=== PATIENT | male | born 1955 | race Caucasian/White ===

== ENCOUNTER 2018-05-16 09:06 | Inpatient (IN) | payer MEDICAID, OTHER ==
[2018-05-16] VITALS (12 sets, daily range): BP systolic 163–215; BP diastolic 59–100
[~2018-05-16] VITALS: Ht 152.4 cm; Wt 70.8 kg
[~2018-05-16 09:06] MED LIST: ALLO100T PO; AMLO10TA80 PO; FERR325T6 PO; GABA-531 PO; INSU100I22 SQ; SIMV20TA6 PO
[2018-05-16] MEDS ORDERED: ALBUTEROL (0.083%) 2.5MG/3ML NEB HHN STA (09:36)
[2018-05-16] MEDS ORDERED: ENALAPRIL 2.5MG/2ML VIAL 2ML IV ONE (09:45)
[2018-05-16 10:17] LABS: BASOPHILS % 1.3 % (0.0-2.0); EOSINOPHILS % 8.6 % (0.0-5.0); HEMATOCRIT. 27.2 % (42.0-52.0); HEMOGLOBIN. 9.1 g/dL (14.0-18.0); LYMPHOCYTES % 20.4 % (20.0-50.0); MEAN CORPUSCULAR HEMOGLOBIN 27.5 pg (28.0-32.0); MEAN CORPUSCULAR VOLUME 82.7 fL (80.0-94.0); MEAN PLATELET VOLUME 8.1 fl (7.4-10.4); MONOCYTES % 5.6 % (2.0-8.0); NEUTROPHILS % 64.1 % (40.0-76.0); PLATELET 278 x1000/uL (130-400); RED BLOOD CELL COUNT 3.29 mill/uL (4.7-6.1); RED CELL DISTRIBUTION WIDTH 17.7 % (11.6-14.6)
[2018-05-16 10:26] LABS: CHLORIDE 110 mEq/L (98-107); PARTIAL THROMBOPLASTIN TIME 30.7 sec (23.4-31.0); PROTHROMBIN TIME 10.1 sec (9.1-11.1)
[2018-05-16 10:31] LABS: ETHANOL BLOOD < 10 mg/dL
[2018-05-16] MEDS ORDERED: LEVOFLOXACIN 500MG PREMIX 100 ML IV ONE (10:45)
[2018-05-16] MEDS ORDERED: AZITHROMYCIN 500 MG in DEXT 5% WATER 250 ML IV STA (10:47)
[2018-05-16] MEDS ORDERED: CEFTRIAXONE 1 G PREMIX 50 ML IV ONE (11:00)
[2018-05-16 11:03] LABS: BG BASE EXCESS -5.2 mmol/L (-2.0-2.0); BG CARBOXYHEMOGLOBIN 0.4 % (0.5-1.5); BG DEOXYHEMOGLOBIN 4.7 % (0.0-5.0); BG FRACTION INSPIRED OXYGEN 21; BG HCO3 ACT 19.5 mmol/L (22.0-26.0); BG METHEMOGLOBIN 0.3 % (0.0-1.5); BG OXYGEN SATURATION 95.3 % (92.0-98.5); BG OXYHEMOGLOBIN 94.6 % (94.0-97.0); BG PCO2 34.2 mmHg (35.0-45.0); BG PH 7.373 (7.350-7.450); BG PO2 88.7 mmHg (75.0-100.0); BG SAMPLE SITE RIGHT RADIAL; BG TOTAL HEMOGLOBIN 8.9 g/dL (12.0-18.0); BG VENT MODE ROOM AIR
[2018-05-16] MEDS ORDERED: FUROSEMIDE 100MG/10ML VIAL IV STA (11:05)
[2018-05-16] MEDS ORDERED: INSULIN REGULAR (HUMULIN R) 300UNITS/3ML IV ONE (11:15)
[2018-05-16] MEDS ORDERED: SODIUM POLYSTYRENE SULFONATE 15 G/60 ML BOT PO ONE (11:15)
[2018-05-16] MEDS ORDERED: SODIUM BICARBONATE 8.4% 1 MEQ/ML 50ML SYR IV ONE (11:15)
[2018-05-16] MEDS ORDERED: CALCIUM CHLORIDE 1GM/10ML SYR IV ONE (11:15)
[2018-05-16] MEDS ORDERED: DEXTROSE 50% WATER 50ML SYRINGE IV ONE (11:15)
[2018-05-16] MEDS ORDERED: ASPIRIN 81MG TABLET PO ONE (11:45)
[2018-05-16] MEDS ORDERED: LIDOCAINE HCL 1% 20ML VIAL (Pyxis) INJ ONE (12:43)
[2018-05-16 13:11] LABS: HEPATITIS B SURFACE AB < 3.1 mIU/mL
[2018-05-16] MEDS ORDERED: LISI-604 PO (17:17)
[2018-05-16] MEDS ORDERED: CLON0.1T PO (17:17)
[2018-05-16] MEDS ORDERED: AMLO10TA4 PO (17:17)
[2018-05-16] MEDS ORDERED: COR6 PO (17:17)
[2018-05-16] MEDS ORDERED: ASPI-1158 MT (17:17)
[2018-05-16] MEDS: CLONIDINE 0.2MG TABLET PO PRN ×2 (17:28→20:52)
[2018-05-16] MEDS ORDERED: ONDANSETRON HCL 4MG/2ML INJ IV PRN (21:00)
[2018-05-16] MEDS ORDERED: ACETAMINOPHEN 325MG TABLET PO PRN (21:00)
[2018-05-16] MEDS ORDERED: IPRATROPIUM/ALBUTEROL 0.5-3(2.5)MG/3ML NEB INH PRN (21:00)
[2018-05-16] MEDS ORDERED: HYDROCODONE/ACETAMINOPHEN 10/325MG TABLET PO PRN (21:00)
[2018-05-16] MEDS ORDERED: METHYLPREDNISOLONE SOD SUCC 125 MG/2 ML VIAL IV NR (21:00)
[2018-05-16] MEDS ORDERED: GUAIFENESIN 200MG/10ML SUGAR FREE UDC PO PRN (21:00)
[2018-05-16] MEDS: GABAPENTIN 100MG CAPSULE PO SCH (21:23)
[2018-05-16] MEDS: FAMOTIDINE 20MG TABLET PO SCH (21:23)
[2018-05-16] MEDS: ATORVASTATIN CALCIUM 20MG TABLET PO SCH (21:23)
[2018-05-16] MEDS: COLCHICINE 0.6MG TABLET PO SCH (21:23)
[2018-05-16] MEDS: SODIUM CHLORIDE 0.9% INJ 3ML FLUSH IVF SCH (21:35)
[2018-05-16] MEDS: INSULIN GLARGINE UD 100 UNITS/ML SYR SUBCUT SCH (22:11)
[2018-05-16] MEDS ORDERED: DEXTROSE 50% WATER 50ML SYRINGE IV PRN (22:45)
[2018-05-17] VITALS (16 sets, daily range): BP systolic 129–199; BP diastolic 48–114
[2018-05-17] MEDS: CLONIDINE 0.2MG TABLET PO PRN ×2 (03:22→21:34)
[2018-05-17] MEDS: GABAPENTIN 100MG CAPSULE PO SCH ×3 (05:36→21:33)
[2018-05-17] MEDS: SODIUM CHLORIDE 0.9% INJ 3ML FLUSH IVF SCH ×3 (05:37→22:00)
[2018-05-17] MEDS: BLOOD SUGAR DIAGNOSTIC STRIP TEST SCH ×4 (07:58→21:00)
[2018-05-17] MEDS: AMLODIPINE 10MG TABLET PO SCH (08:08)
[2018-05-17] MEDS: LISINOPRIL 20MG TABLET PO SCH (08:08)
[2018-05-17] MEDS: INSULIN LISPRO 100 UNITS/ML SUBCUT SCH ×4 (08:09→21:33)
[2018-05-17] MEDS: COLCHICINE 0.6MG TABLET PO SCH (09:17)
[2018-05-17 17:15] LABS: HEMATOCRIT. 28.8 % (42.0-52.0); HEMOGLOBIN. 9.4 g/dL (14.0-18.0); MEAN CORPUSCULAR HEMOGLOBIN 26.9 pg (28.0-32.0); MEAN CORPUSCULAR VOLUME 82.4 fL (80.0-94.0); MEAN PLATELET VOLUME 8.6 fl (7.4-10.4); PLATELET 281 x1000/uL (130-400); RED CELL DISTRIBUTION WIDTH 17.6 % (11.6-14.6)
[2018-05-17 21:03] LABS: PLATELET ESTIMATE NORMAL
[2018-05-17] MEDS: INSULIN GLARGINE UD 100 UNITS/ML SYR SUBCUT SCH (21:33)
[2018-05-17] MEDS: FAMOTIDINE 20MG TABLET PO SCH (21:33)
[2018-05-17] MEDS: ATORVASTATIN CALCIUM 20MG TABLET PO SCH (21:34)
[2018-05-17] MEDS: TEMAZEPAM 15MG CAPSULE PO PRN (21:37)
[2018-05-18] VITALS (11 sets, daily range): BP systolic 136–155; BP diastolic 66–78
[2018-05-18] MEDS: GABAPENTIN 100MG CAPSULE PO SCH ×3 (05:34→20:59)
[2018-05-18] MEDS: SODIUM CHLORIDE 0.9% INJ 3ML FLUSH IVF SCH ×3 (05:34→21:00)
[2018-05-18 06:28] LABS: BASOPHILS % 0.8 % (0.0-2.0); EOSINOPHILS % 0.8 % (0.0-5.0); HEMATOCRIT. 28.3 % (42.0-52.0); HEMOGLOBIN. 9.5 g/dL (14.0-18.0); LYMPHOCYTES % 12.7 % (20.0-50.0); MEAN CORPUSCULAR HEMOGLOBIN 27.4 pg (28.0-32.0); MEAN PLATELET VOLUME 8.6 fl (7.4-10.4); NEUTROPHILS % 80.7 % (40.0-76.0); PLATELET 264 x1000/uL (130-400); RED BLOOD CELL COUNT 3.45 mill/uL (4.7-6.1); RED CELL DISTRIBUTION WIDTH 17.1 % (11.6-14.6)
[2018-05-18] MEDS: BLOOD SUGAR DIAGNOSTIC STRIP TEST SCH ×4 (07:30→20:47)
[2018-05-18] MEDS: COLCHICINE 0.6MG TABLET PO SCH (10:25)
[2018-05-18] MEDS: AMLODIPINE 10MG TABLET PO SCH (10:25)
[2018-05-18] MEDS: LISINOPRIL 20MG TABLET PO SCH (10:26)
[2018-05-18] MEDS: DIPHENHYDRAMINE 50MG/ML VIAL IV PRN ×2 (10:27→18:07)
[2018-05-18] MEDS: INSULIN LISPRO 100 UNITS/ML SUBCUT SCH ×4 (10:34→20:59)
[2018-05-18] MEDS: TEMAZEPAM 15MG CAPSULE PO PRN (20:59)
[2018-05-18] MEDS: FAMOTIDINE 20MG TABLET PO SCH (20:59)
[2018-05-18] MEDS: ATORVASTATIN CALCIUM 20MG TABLET PO SCH (20:59)
[2018-05-18] MEDS: TRAZODONE HCL 50MG TABLET PO SCH (20:59)
[2018-05-18] MEDS: INSULIN GLARGINE UD 100 UNITS/ML SYR SUBCUT SCH (22:15)
[2018-05-19] VITALS (12 sets, daily range): BP systolic 129–167; BP diastolic 72–83
[2018-05-19] MEDS: SODIUM CHLORIDE 0.9% INJ 3ML FLUSH IVF SCH ×3 (05:26→21:39)
[2018-05-19] MEDS: GABAPENTIN 100MG CAPSULE PO SCH ×3 (05:26→21:31)
[2018-05-19 05:59] LABS: BASOPHILS % 1.2 % (0.0-2.0); EOSINOPHILS % 5.1 % (0.0-5.0); HEMATOCRIT. 27.9 % (42.0-52.0); HEMOGLOBIN. 9.1 g/dL (14.0-18.0); LYMPHOCYTES % 23.3 % (20.0-50.0); MEAN CORPUSCULAR HEMOGLOBIN 27.2 pg (28.0-32.0); MEAN CORPUSCULAR VOLUME 83.1 fL (80.0-94.0); MEAN PLATELET VOLUME 8.8 fl (7.4-10.4); MONOCYTES % 5.7 % (2.0-8.0); NEUTROPHILS % 64.7 % (40.0-76.0); PLATELET 255 x1000/uL (130-400); RED BLOOD CELL COUNT 3.35 mill/uL (4.7-6.1); RED CELL DISTRIBUTION WIDTH 17.8 % (11.6-14.6)
[2018-05-19] MEDS: BLOOD SUGAR DIAGNOSTIC STRIP TEST SCH ×4 (07:30→21:38)
[2018-05-19] MEDS: INSULIN LISPRO 100 UNITS/ML SUBCUT SCH ×4 (08:00→21:35)
[2018-05-19] MEDS ORDERED: HEPARIN SODIUM 1,000 UNIT/1ML VIAL IV NR (08:45)
[2018-05-19] MEDS: COLCHICINE 0.6MG TABLET PO SCH (12:38)
[2018-05-19] MEDS: LISINOPRIL 20MG TABLET PO SCH ×2 (12:39→21:31)
[2018-05-19] MEDS: AMLODIPINE 10MG TABLET PO SCH (12:39)
[2018-05-19] MEDS: DIPHENHYDRAMINE 50MG/ML VIAL IV PRN (12:39)
[2018-05-19] MEDS: GLIMEPIRIDE 2MG TABLET PO SCH (19:02)
[2018-05-19] MEDS: TRAZODONE HCL 50MG TABLET PO SCH (21:30)
[2018-05-19] MEDS: FAMOTIDINE 20MG TABLET PO SCH (21:31)
[2018-05-19] MEDS: ATORVASTATIN CALCIUM 20MG TABLET PO SCH (21:31)
[2018-05-19] MEDS: INSULIN GLARGINE UD 100 UNITS/ML SYR SUBCUT SCH (21:36)
[2018-05-20] VITALS (22 sets, daily range): BP systolic 113–181; BP diastolic 64–94
[2018-05-20] MEDS: GABAPENTIN 100MG CAPSULE PO SCH ×3 (06:10→21:30)
[2018-05-20] MEDS: SODIUM CHLORIDE 0.9% INJ 3ML FLUSH IVF SCH ×3 (06:11→21:29)
[2018-05-20 06:19] LABS: BASOPHILS % 1.3 % (0.0-2.0); EOSINOPHILS % 8.8 % (0.0-5.0); HEMATOCRIT. 27.9 % (42.0-52.0); HEMOGLOBIN. 9.4 g/dL (14.0-18.0); LYMPHOCYTES % 28.5 % (20.0-50.0); MEAN CORPUSCULAR HEMOGLOBIN 27.4 pg (28.0-32.0); MEAN CORPUSCULAR VOLUME 81.5 fL (80.0-94.0); MEAN PLATELET VOLUME 8.6 fl (7.4-10.4); MONOCYTES % 8.4 % (2.0-8.0); PLATELET 268 x1000/uL (130-400); RED BLOOD CELL COUNT 3.42 mill/uL (4.7-6.1); RED CELL DISTRIBUTION WIDTH 17.1 % (11.6-14.6)
[2018-05-20 06:26] LABS: PARTIAL THROMBOPLASTIN TIME 27.5 sec (23.4-31.0); PROTHROMBIN TIME 10.4 sec (9.1-11.1)
[2018-05-20] MEDS: GLIMEPIRIDE 2MG TABLET PO SCH (07:30)
[2018-05-20] MEDS: INSULIN LISPRO 100 UNITS/ML SUBCUT SCH ×4 (08:00→21:31)
[2018-05-20] MEDS: BLOOD SUGAR DIAGNOSTIC STRIP TEST SCH ×4 (08:10→21:31)
[2018-05-20] MEDS: LISINOPRIL 20MG TABLET PO SCH ×2 (08:11→21:29)
[2018-05-20] MEDS: ALLOPURINOL 100 MG TABLET PO SCH (08:11)
[2018-05-20] MEDS: AMLODIPINE 10MG TABLET PO SCH (08:11)
[2018-05-20] MEDS ORDERED: CEFAZOLIN 1000MG PREMIX 50 ML IV SCH (08:15)
[2018-05-20] MEDS ORDERED: LIDOCAINE HCL 1% 20ML VIAL (Pyxis) INJ ONE (08:26)
[2018-05-20] MEDS ORDERED: CEFAZOLIN 1000MG PREMIX 50 ML IV ONE (08:26)
[2018-05-20] MEDS ORDERED: SODIUM BICARBONATE 4% (2.4MEQ) 5ML VIAL IV ONE (08:26)
[2018-05-20] MEDS ORDERED: FENTANYL CITRATE/PF 50MCG/ML 2ML VIAL ONE (08:27)
[2018-05-20] MEDS ORDERED: FENTANYL CITRATE/PF 50MCG/ML 2ML VIAL IV ONE (09:30)
[2018-05-20 13:03] LABS: HEPATITIS B SURFACE ANTIGEN NEGATIVE
[2018-05-20 13:33] LABS: HEPATITIS A AB IGM NEGATIVE (NEGATIVE)
[2018-05-20] MEDS: NIFEDIPINE XL 60MG TAB PO SCH (13:51)
[2018-05-20] MEDS: CLONIDINE 0.2MG TABLET PO PRN (18:34)
[2018-05-20] MEDS: FAMOTIDINE 20MG TABLET PO SCH (21:29)
[2018-05-20] MEDS: TRAZODONE HCL 50MG TABLET PO SCH (21:29)
[2018-05-20] MEDS: ATORVASTATIN CALCIUM 20MG TABLET PO SCH (21:30)
[2018-05-20] MEDS: INSULIN GLARGINE UD 100 UNITS/ML SYR SUBCUT SCH (21:31)
[2018-05-21] VITALS (9 sets, daily range): BP systolic 116–152; BP diastolic 61–76
[2018-05-21] MEDS: NIFEDIPINE XL 60MG TAB PO SCH ×2 (00:42→13:43)
[2018-05-21] MEDS: GABAPENTIN 100MG CAPSULE PO SCH ×2 (05:58→13:43)
[2018-05-21] MEDS: SODIUM CHLORIDE 0.9% INJ 3ML FLUSH IVF SCH ×2 (05:59→13:44)
[2018-05-21 06:01] LABS: BASOPHILS % 1.2 % (0.0-2.0); EOSINOPHILS % 8.7 % (0.0-5.0); HEMATOCRIT. 26.5 % (42.0-52.0); HEMOGLOBIN. 8.9 g/dL (14.0-18.0); LYMPHOCYTES % 21.2 % (20.0-50.0); MEAN CORPUSCULAR HEMOGLOBIN 27.5 pg (28.0-32.0); MEAN CORPUSCULAR VOLUME 81.4 fL (80.0-94.0); MEAN PLATELET VOLUME 8.7 fl (7.4-10.4); MONOCYTES % 10.2 % (2.0-8.0); NEUTROPHILS % 58.7 % (40.0-76.0); PLATELET 246 x1000/uL (130-400); RED BLOOD CELL COUNT 3.25 mill/uL (4.7-6.1); RED CELL DISTRIBUTION WIDTH 16.9 % (11.6-14.6)
[2018-05-21] MEDS: GLIMEPIRIDE 2MG TABLET PO SCH (07:45)
[2018-05-21] MEDS: BLOOD SUGAR DIAGNOSTIC STRIP TEST SCH ×2 (07:45→12:42)
[2018-05-21] MEDS: INSULIN LISPRO 100 UNITS/ML SUBCUT SCH ×2 (07:50→12:42)
[2018-05-21] MEDS: LISINOPRIL 20MG TABLET PO SCH (09:00)
[2018-05-21] MEDS: ALLOPURINOL 100 MG TABLET PO SCH (09:07)
== END 2018-05-21 15:45 | disposition home or self-care (01) | DRG 194 ==
LOC: ER 09:41 → 5EST 11:12 → ENRESERV 11:21
PROVIDERS: ADMIT Internal Medicine; ATTEND Internal Medicine
PROC: 02H633Z Insertion of Infusion Device into Right Atrium, Percutaneous Approach (ICD-10-PCS; principal; 2018-05-16)
PROC: B244ZZZ Ultrasonography of Right Heart (ICD-10-PCS; 2018-05-16)
PROC: 5A1D70Z Performance of Urinary Filtration, Intermittent, Less than 6 Hours Per Day (ICD-10-PCS; 2018-05-16)
PROC: 5A1D70Z Performance of Urinary Filtration, Intermittent, Less than 6 Hours Per Day (ICD-10-PCS; 2018-05-19)
PROC: 02HV33Z Insertion of Infusion Device into Superior Vena Cava, Percutaneous Approach (ICD-10-PCS; 2018-05-20)
PROC: B5181ZA Fluoroscopy of Superior Vena Cava using Low Osmolar Contrast, Guidance (ICD-10-PCS; 2018-05-20)
PROC: 5A1D70Z Performance of Urinary Filtration, Intermittent, Less than 6 Hours Per Day (ICD-10-PCS; 2018-05-21)
DX: I13.0 Hypertensive heart and chronic kidney disease with heart failure and stage 1 through stage 4 chronic kidney disease, or unspecified chronic kidney disease (principal); E43 Unspecified severe protein-calorie malnutrition; N17.9 Acute kidney failure, unspecified; E11.22 Type 2 diabetes mellitus with diabetic chronic kidney disease; I48.91 Unspecified atrial fibrillation; I50.31 Acute diastolic (congestive) heart failure; E11.40 Type 2 diabetes mellitus with diabetic neuropathy, unspecified; N18.6 End stage renal disease; E87.5 Hyperkalemia; D63.8 Anemia in other chronic diseases classified elsewhere; F32.9 Major depressive disorder, single episode, unspecified; E78.00 Pure hypercholesterolemia, unspecified; M10.9 Gout, unspecified; E78.5 Hyperlipidemia, unspecified; Z59.0 Homelessness; Z60.2 Problems related to living alone; Z72.0 Tobacco use; Z82.49 Family history of ischemic heart disease and other diseases of the circulatory system; Z99.2 Dependence on renal dialysis; Z68.30 Body mass index [BMI] 30.0-30.9, adult; Z79.4 Long term (current) use of insulin; Z79.899 Other long term (current) drug therapy
CPT/HCPCS: 36415; 36558; 36569; 36589; 36600; 71045; 76937; 77001; 80048; 82375; 82805; 82962; 83540; 83550; 83605; 83735; 83880; 84132; 84484; 86705; 86706; 86709; 86803; 87340; 93005; 93970; 94640; 96365; 96367; 96375; 99152; 99153; 99285; C1750; C1752; C1769; G0482; J0456; J0690; J0696; J1200; J1642; J1644; J1815; J1940; J2405; J2930; J3010; J3490; J7040; J7050; J7060; J7611; G0500

== ENCOUNTER 2018-06-28 11:33 | Inpatient (IN) | payer MEDICAID, OTHER ==
[~2018-06-28] VITALS: Ht 160 cm; Wt 67.6 kg
[~2018-06-28 11:33] MED LIST changes: +ASPI-1158 MT; +CLON0.1T PO; +COR6 PO; -FERR325T6 PO; -GABA-531 PO; -INSU100I22 SQ; +LISI-604 PO; -SIMV20TA6 PO
[2018-06-28 13:34] LABS: CHLORIDE 102 mEq/L (98-107)
[2018-06-28 13:36] LABS: INR 1.1; PARTIAL THROMBOPLASTIN TIME 33.4 sec (23.4-31.0); PROTHROMBIN TIME 10.6 sec (9.1-11.1)
[2018-06-28 13:42] LABS: BASOPHILS % 1.2 % (0.0-2.0); EOSINOPHILS % 6.6 % (0.0-5.0); LYMPHOCYTES % 15.6 % (20.0-50.0); MEAN CORPUSCULAR HEMOGLOBIN 28.1 pg (28.0-32.0); MEAN CORPUSCULAR VOLUME 85.6 fL (80.0-94.0); MEAN PLATELET VOLUME 8.1 fl (7.4-10.4); MONOCYTES % 5.7 % (2.0-8.0); NEUTROPHILS % 70.9 % (40.0-76.0); PLATELET 322 x1000/uL (130-400); RED BLOOD CELL COUNT 2.46 mill/uL (4.7-6.1); RED CELL DISTRIBUTION WIDTH 15.9 % (11.6-14.6)
[2018-06-28 13:44] LABS: HEMOGLOBIN. 6.9 g/dL (14.0-18.0)
[2018-06-28] MEDS ORDERED: IPRATROPIUM/ALBUTEROL 0.5-3(2.5)MG/3ML NEB INH PRN (15:00)
[2018-06-28] MEDS ORDERED: ONDANSETRON HCL 4MG/2ML INJ IV PRN (15:00)
[2018-06-28] MEDS ORDERED: NITROGLYCERIN 0.4MG TABLET SL SL PRN (15:00)
[2018-06-28] MEDS ORDERED: DOCUSATE SODIUM 100MG CAPSULE PO PRN (15:00)
[2018-06-28] MEDS ORDERED: ACETAMINOPHEN 325MG TABLET PO PRN (15:00)
[2018-06-28] MEDS ORDERED: DIPHENHYDRAMINE 50MG/ML VIAL IV PRN (15:00)
[2018-06-28] MEDS ORDERED: MAGNESIUM/ALUMINUM HYDROXIDE/SIMETHICONE 30ML UDC PO PRN (15:00)
[2018-06-28] MEDS ORDERED: GUAIFENESIN 200MG/10ML SUGAR FREE UDC PO PRN (15:00)
[2018-06-28 15:25] LABS: TOTAL IRON BINDING CAPACITY 172 ug/dL (250-450)
[2018-06-28 16:13] LABS: FOLIC ACID (FOLATE) SERUM 8.8 ng/mL (>5.38)
[2018-06-28] MEDS: SEVELAMER CARBONATE 800 MG TABLET PO SCH (17:00)
[2018-06-28] MEDS: BLOOD SUGAR DIAGNOSTIC STRIP TEST SCH ×2 (17:04→21:56)
[2018-06-28] MEDS: CLONIDINE 0.1MG TABLET PO PRN (17:43)
[2018-06-28 18:45] VITALS: BP 122/74
[2018-06-28] MEDS ORDERED: DEXTROSE 50% WATER 50ML SYRINGE IV PRN (19:00)
[2018-06-28] MEDS: CARVEDILOL 3.125 MG TABLET PO SCH (19:00)
[2018-06-28 20:00] VITALS: BP 163/64
[2018-06-28] MEDS: LISINOPRIL 20MG TABLET PO SCH (20:42)
[2018-06-28] MEDS: INSULIN LISPRO 100 UNITS/ML SUBCUT SCH (20:43)
[2018-06-28 21:00] VITALS: BP 212/88
[2018-06-28] MEDS ORDERED: ZOLPIDEM TARTRATE 5MG TABLET PO PRN (21:00)
[2018-06-28] MEDS ORDERED: FAMOTIDINE 20MG TABLET PO SCH (21:00)
[2018-06-28] MEDS: HYDRALAZINE HCL 50MG TABLET PO SCH (21:57)
[2018-06-29] VITALS: BP 208/86
[2018-06-29] MEDS: LORAZEPAM 0.5MG TABLET PO PRN ×2 (00:05→08:45)
[2018-06-29] MEDS: CLONIDINE 0.1MG TABLET PO PRN ×2 (00:05→09:40)
[2018-06-29 05:41] VITALS: BP 200/78
[2018-06-29] MEDS: CARVEDILOL 3.125 MG TABLET PO SCH (05:45)
[2018-06-29] MEDS: HYDRALAZINE HCL 50MG TABLET PO SCH ×2 (05:46→13:54)
[2018-06-29] MEDS: BLOOD SUGAR DIAGNOSTIC STRIP TEST SCH ×2 (07:40→12:40)
[2018-06-29 08:00] VITALS: BP 192/77
[2018-06-29] MEDS: INSULIN LISPRO 100 UNITS/ML SUBCUT SCH ×2 (08:10→13:54)
[2018-06-29] MEDS: SEVELAMER CARBONATE 800 MG TABLET PO SCH ×2 (08:45→13:54)
[2018-06-29] MEDS ORDERED: FOLIC ACID/VITAMIN B COMP W-C TABLET PO SCH (09:00)
[2018-06-29] MEDS ORDERED: AMLODIPINE 10MG TABLET PO SCH (09:00)
[2018-06-29] MEDS: LISINOPRIL 20MG TABLET PO SCH (09:40)
[2018-06-29] MEDS ORDERED: METHYLPREDNISOLONE SOD SUCC 125 MG/2 ML VIAL IV SCH (11:45)
[2018-06-29 12:00] VITALS: BP 145/60
[2018-06-29 12:48] VITALS: BP 145/66
[2018-06-29 12:56] LABS: BASOPHILS % 1.2 % (0.0-2.0); EOSINOPHILS % 5.4 % (0.0-5.0); HEMATOCRIT. 26.4 % (42.0-52.0); HEMOGLOBIN. 8.8 g/dL (14.0-18.0); LYMPHOCYTES % 15.4 % (20.0-50.0); MEAN CORPUSCULAR HEMOGLOBIN 28.2 pg (28.0-32.0); MEAN CORPUSCULAR VOLUME 84.2 fL (80.0-94.0); MEAN PLATELET VOLUME 7.9 fl (7.4-10.4); MONOCYTES % 5.6 % (2.0-8.0); NEUTROPHILS % 72.4 % (40.0-76.0); PLATELET 342 x1000/uL (130-400); RED BLOOD CELL COUNT 3.14 mill/uL (4.7-6.1)
== END 2018-06-29 17:25 | disposition home or self-care (01) | DRG 470 ==
LOC: ER 11:33 → 7WST 13:52 → EDBEDREQ 13:54 → ENRESERV 15:17
PROVIDERS: ADMIT Internal Medicine; ATTEND Internal Medicine
PROC: 30233N1 Transfusion of Nonautologous Red Blood Cells into Peripheral Vein, Percutaneous Approach (ICD-10-PCS; principal; 2018-06-28)
PROC: 5A1D70Z Performance of Urinary Filtration, Intermittent, Less than 6 Hours Per Day (ICD-10-PCS; 2018-06-29)
DX: I12.0 Hypertensive chronic kidney disease with stage 5 chronic kidney disease or end stage renal disease (principal); E43 Unspecified severe protein-calorie malnutrition; E11.22 Type 2 diabetes mellitus with diabetic chronic kidney disease; D63.8 Anemia in other chronic diseases classified elsewhere; E83.51 Hypocalcemia; E87.5 Hyperkalemia; N18.6 End stage renal disease; Z99.2 Dependence on renal dialysis; M10.9 Gout, unspecified; Z68.26 Body mass index [BMI] 26.0-26.9, adult
CPT/HCPCS: 36415; 36430; 71045; 80048; 82607; 82746; 82962; 83036; 83540; 83550; 83880; 84484; 86850; 86900; 86920; 93005; 96374; 99285; J1200; J1815; J2930; P9016

== ENCOUNTER 2018-08-11 00:20 | Inpatient (IN) | payer MEDICAID ==
[~2018-08-11] VITALS: Ht 167.6 cm; Wt 73.5 kg
[2018-08-11] MEDS ORDERED: SODIUM CHLORIDE 0.9% 1,000 ML IV ONE (00:55)
[2018-08-11] MEDS ORDERED: METHYLPREDNISOLONE SOD SUCC 125 MG/2 ML VIAL IV ONE (01:00)
[2018-08-11] MEDS ORDERED: VISCOUS LIDOCAINE 2% 15 ML UDC MM STA (01:05)
[2018-08-11] MEDS ORDERED: MAGNESIUM/ALUMINUM HYDROXIDE/SIMETHICONE 30ML UDC PO ONE (01:15)
[2018-08-11 01:27] LABS: CHLORIDE 100 mEq/L (98-107)
[2018-08-11 01:31] LABS: BASOPHILS % 1.4 % (0.0-2.0); EOSINOPHILS % 5.3 % (0.0-5.0); HEMATOCRIT. 33.4 % (42.0-52.0); LYMPHOCYTES % 16.3 % (20.0-50.0); MEAN CORPUSCULAR VOLUME 85.3 fL (80.0-94.0); MEAN PLATELET VOLUME 7.6 fl (7.4-10.4); MONOCYTES % 5.7 % (2.0-8.0); NEUTROPHILS % 71.3 % (40.0-76.0); PLATELET 297 x1000/uL (130-400); RED BLOOD CELL COUNT 3.92 mill/uL (4.7-6.1); RED CELL DISTRIBUTION WIDTH 16.4 % (11.6-14.6)
[2018-08-11] MEDS ORDERED: VANCOMYCIN 1 G PREMIX 200 ML IV SCH (02:00)
[2018-08-11] MEDS ORDERED: AZITHROMYCIN 500 MG in DEXT 5% WATER 250 ML IV NR (02:00)
[2018-08-11] MEDS ORDERED: PIPERACILLIN/TAZOBACTAM 3.375GM/50ML PREMIX IV ONE (02:00)
[2018-08-11] MEDS ORDERED: PIPERACILLIN/TAZ 2.25G PREMIX 50 ML IV NR (02:15)
[2018-08-11 02:40] LABS: CLARITY URINE CLEAR (CLEAR); COLOR URINE YELLOW (YELLOW); KETONES URINE NEGATIVE (NEGATIVE); LEUKOCYTE ESTERASE URINE TRACE (NEGATIVE); NITRITE URINE NEGATIVE (NEGATIVE); OCCULT BLOOD URINE TRACE (NEGATIVE); PROTEIN URINE 4+ (NEGATIVE); SPECIFIC GRAVITY URINE 1.015 (1.005-1.030); UROBILINOGEN URINE 0.2 E.U./dL (0.2-1.0)
[2018-08-11] MEDS ORDERED: CLONIDINE 0.1MG TABLET PO PRN (04:30)
[2018-08-11] MEDS: NIFEDIPINE XL 60MG TAB PO SCH (10:00)
[2018-08-11] MEDS: ALLOPURINOL 100 MG TABLET PO SCH (10:01)
[2018-08-11 16:46] VITALS: BP 136/68
[2018-08-11 17:35] VITALS: BP 136/68
[2018-08-11] MEDS ORDERED: DEXTROSE 50% WATER 50ML SYRINGE IV PRN (18:30)
[2018-08-11 20:00] VITALS: BP 138/67
[2018-08-11] MEDS: INSULIN LISPRO 100 UNITS/ML SUBCUT SCH (20:19)
[2018-08-11] MEDS: BLOOD SUGAR DIAGNOSTIC STRIP TEST SCH (20:24)
[2018-08-11] MEDS: CARVEDILOL 6.25 MG TABLET PO SCH (20:27)
[2018-08-11 22:00] VITALS: BP 140/74
[2018-08-12] VITALS: BP 141/79
[2018-08-12 04:00] VITALS: BP 143/64
[2018-08-12] MEDS: BLOOD SUGAR DIAGNOSTIC STRIP TEST SCH ×4 (05:50→20:40)
[2018-08-12 08:00] VITALS: BP_SYST 132; BP_SYST 136; BP_DIAS 62; BP_DIAS 66
[2018-08-12] MEDS: INSULIN LISPRO 100 UNITS/ML SUBCUT SCH ×4 (08:28→20:40)
[2018-08-12] MEDS: CARVEDILOL 6.25 MG TABLET PO SCH ×2 (08:29→20:43)
[2018-08-12] MEDS: ALLOPURINOL 100 MG TABLET PO SCH (08:30)
[2018-08-12] MEDS: NIFEDIPINE XL 60MG TAB PO SCH (08:30)
[2018-08-12] MEDS ORDERED: ALLOPURINOL 100 MG TABLET PO SCH (09:00)
[2018-08-12 11:34] LABS: BASOPHILS % 1.1 % (0.0-2.0); EOSINOPHILS % 0.8 % (0.0-5.0); HEMATOCRIT. 30.5 % (42.0-52.0); HEMOGLOBIN. 10.2 g/dL (14.0-18.0); LYMPHOCYTES % 13.7 % (20.0-50.0); MEAN CORPUSCULAR HEMOGLOBIN 28.5 pg (28.0-32.0); MEAN CORPUSCULAR VOLUME 85.2 fL (80.0-94.0); MEAN PLATELET VOLUME 8.3 fl (7.4-10.4); MONOCYTES % 4.9 % (2.0-8.0); NEUTROPHILS % 79.5 % (40.0-76.0); PLATELET 282 x1000/uL (130-400); RED BLOOD CELL COUNT 3.59 mill/uL (4.7-6.1); RED CELL DISTRIBUTION WIDTH 16.3 % (11.6-14.6)
[2018-08-12 12:00] VITALS: BP 128/79
[2018-08-12] MEDS ORDERED: ONDANSETRON HCL 4MG/2ML INJ IV PRN (14:30)
[2018-08-12] MEDS ORDERED: MAGNESIUM HYDROXIDE 400MG/5ML 30ML UDC PO PRN (14:30)
[2018-08-12 16:00] VITALS: BP 160/77
[2018-08-12 20:00] VITALS: BP 141/70
[2018-08-13] VITALS: BP 143/65
[2018-08-13 04:00] VITALS: BP 130/70
[2018-08-13] MEDS: BLOOD SUGAR DIAGNOSTIC STRIP TEST SCH ×4 (06:46→21:00)
[2018-08-13 06:47] LABS: HEMATOCRIT. 35.2 % (42.0-52.0); HEMOGLOBIN. 11.3 g/dL (14.0-18.0); MEAN CORPUSCULAR HEMOGLOBIN 28.4 pg (28.0-32.0); MEAN CORPUSCULAR VOLUME 88.2 fL (80.0-94.0); MEAN PLATELET VOLUME 9.3 fl (7.4-10.4); PLATELET 182 x1000/uL (130-400); RED BLOOD CELL COUNT 3.99 mill/uL (4.7-6.1); RED CELL DISTRIBUTION WIDTH 16.5 % (11.6-14.6)
[2018-08-13 08:00] VITALS: BP 136/72
[2018-08-13] MEDS: INSULIN LISPRO 100 UNITS/ML SUBCUT SCH ×4 (08:10→22:45)
[2018-08-13] MEDS: CARVEDILOL 6.25 MG TABLET PO SCH ×2 (08:44→22:45)
[2018-08-13] MEDS: ALLOPURINOL 100 MG TABLET PO SCH (08:45)
[2018-08-13] MEDS: NIFEDIPINE XL 60MG TAB PO SCH (08:45)
[2018-08-13] MEDS: POLYETHYLENE GLYCOL 3350 (17GM) 1 DOSE PACK PO SCH ×2 (08:46→09:00)
[2018-08-13] MEDS: DOCUSATE SODIUM 250MG CAPSULE PO SCH ×2 (08:46→09:00)
[2018-08-13 09:59] LABS: PLATELET ESTIMATE NORMAL
[2018-08-13 12:00] VITALS: BP 141/80
[2018-08-13 16:00] VITALS: BP 145/76
[2018-08-13 20:00] VITALS: BP 185/79
[2018-08-14] VITALS (10 sets, daily range): BP systolic 144–193; BP diastolic 66–83
[2018-08-14] MEDS: BLOOD SUGAR DIAGNOSTIC STRIP TEST SCH ×4 (07:12→21:00)
[2018-08-14] MEDS: INSULIN LISPRO 100 UNITS/ML SUBCUT SCH ×4 (08:10→21:00)
[2018-08-14] MEDS: ALLOPURINOL 100 MG TABLET PO SCH (09:05)
[2018-08-14] MEDS: NIFEDIPINE XL 60MG TAB PO SCH (09:05)
[2018-08-14] MEDS: POLYETHYLENE GLYCOL 3350 (17GM) 1 DOSE PACK PO SCH (09:06)
[2018-08-14] MEDS: CARVEDILOL 6.25 MG TABLET PO SCH ×2 (09:06→22:12)
[2018-08-14] MEDS: DOCUSATE SODIUM 250MG CAPSULE PO SCH (09:06)
[2018-08-14] MEDS: LISINOPRIL 20MG TABLET PO SCH (14:08)
[2018-08-14] MEDS: CLONIDINE 0.1MG TABLET PO SCH ×2 (14:10→22:13)
[2018-08-14] MEDS ORDERED: HEPARIN SODIUM 1,000 UNIT/1ML VIAL IV SCH (17:45)
[2018-08-15] VITALS: BP 139/69
[2018-08-15] MEDS: ACETAMINOPHEN 325MG TABLET PO PRN ×2 (01:24→06:13)
[2018-08-15 04:00] VITALS: BP 130/65
[2018-08-15] MEDS: CLONIDINE 0.1MG TABLET PO SCH (05:53)
[2018-08-15 06:26] LABS: HEMATOCRIT. 30.7 % (42.0-52.0); HEMOGLOBIN. 10.4 g/dL (14.0-18.0); LYMPHOCYTES % 22.2 % (20.0-50.0); MEAN CORPUSCULAR HEMOGLOBIN 28.8 pg (28.0-32.0); MEAN CORPUSCULAR VOLUME 84.9 fL (80.0-94.0); MEAN PLATELET VOLUME 8.3 fl (7.4-10.4); MONOCYTES % 8.2 % (2.0-8.0); NEUTROPHILS % 58.6 % (40.0-76.0); PLATELET 293 x1000/uL (130-400); RED BLOOD CELL COUNT 3.62 mill/uL (4.7-6.1); RED CELL DISTRIBUTION WIDTH 15.9 % (11.6-14.6)
[2018-08-15] MEDS: BLOOD SUGAR DIAGNOSTIC STRIP TEST SCH ×2 (07:39→13:10)
[2018-08-15] MEDS: INSULIN LISPRO 100 UNITS/ML SUBCUT SCH ×2 (07:40→13:10)
[2018-08-15 08:00] VITALS: BP 138/60
[2018-08-15] MEDS: POLYETHYLENE GLYCOL 3350 (17GM) 1 DOSE PACK PO SCH (09:00)
[2018-08-15] MEDS: DOCUSATE SODIUM 250MG CAPSULE PO SCH (09:00)
[2018-08-15] MEDS: ALLOPURINOL 100 MG TABLET PO SCH (09:05)
[2018-08-15] MEDS: NIFEDIPINE XL 60MG TAB PO SCH (09:06)
[2018-08-15] MEDS: LISINOPRIL 20MG TABLET PO SCH (09:06)
[2018-08-15] MEDS: CARVEDILOL 6.25 MG TABLET PO SCH (09:08)
[2018-08-15 11:44] VITALS: BP 130/63
[2018-08-15 12:00] VITALS: BP 130/63
== END 2018-08-15 14:50 | disposition home or self-care (01) | DRG 425 ==
LOC: ER 01:08 → 7WST 01:53 → EDBEDREQ 01:55 → EDBEDREQTM 01:55 → EDBEDREQSVC 01:55 → ENRESERV 14:35
PROVIDERS: ADMIT Internal Medicine; ATTEND Internal Medicine
PROC: 5A1D70Z Performance of Urinary Filtration, Intermittent, Less than 6 Hours Per Day (ICD-10-PCS; 2018-08-11)
PROC: 5A1D70Z Performance of Urinary Filtration, Intermittent, Less than 6 Hours Per Day (ICD-10-PCS; 2018-08-13)
PROC: 5A1D70Z Performance of Urinary Filtration, Intermittent, Less than 6 Hours Per Day (ICD-10-PCS; principal; 2018-08-14)
DX: E87.5 Hyperkalemia (principal); E11.22 Type 2 diabetes mellitus with diabetic chronic kidney disease; E44.0 Moderate protein-calorie malnutrition; I12.0 Hypertensive chronic kidney disease with stage 5 chronic kidney disease or end stage renal disease; G62.9 Polyneuropathy, unspecified; E87.70 Fluid overload, unspecified; N18.6 End stage renal disease; D64.9 Anemia, unspecified; Z99.2 Dependence on renal dialysis; E78.00 Pure hypercholesterolemia, unspecified; F10.21 Alcohol dependence, in remission; M10.9 Gout, unspecified; Z82.49 Family history of ischemic heart disease and other diseases of the circulatory system; F17.200 Nicotine dependence, unspecified, uncomplicated; Z79.899 Other long term (current) drug therapy; Z79.1 Long term (current) use of non-steroidal anti-inflammatories (NSAID); Z79.82 Long term (current) use of aspirin
CPT/HCPCS: 36415; 71045; 80048; 82962; 83605; 83880; 84145; 84484; 93005; 96365; 96367; 96368; 96375; 99285; J0456; J1644; J1815; J2543; J2930; J3370; J7030; J7060

== ENCOUNTER 2019-08-13 14:39 | Inpatient (IN) | payer MEDICAID ==
[~2019-08-13] VITALS: Ht 175.3 cm; Wt 69.9 kg
[2019-08-13] MEDS ORDERED: HYDRALAZINE 20MG/ML VIAL IV ONE (15:45)
[2019-08-13 16:58] LABS: CHLORIDE 99 mEq/L (98-107)
[2019-08-13 17:00] LABS: BASOPHILS % 1.1 % (0.0-2.0); EOSINOPHILS % 2.5 % (0.0-5.0); HEMATOCRIT. 41.8 % (42.0-52.0); HEMOGLOBIN. 14.1 g/dL (14.0-18.0); LYMPHOCYTES % 12.1 % (20.0-50.0); MEAN CORPUSCULAR HEMOGLOBIN 29.9 pg (28.0-32.0); MEAN CORPUSCULAR VOLUME 88.8 fL (80.0-94.0); MEAN PLATELET VOLUME 7.8 fl (7.4-10.4); MONOCYTES % 10.5 % (2.0-8.0); NEUTROPHILS % 73.8 % (40.0-76.0); PLATELET 148 x1000/uL (130-400); RED BLOOD CELL COUNT 4.71 mill/uL (4.7-6.1); RED CELL DISTRIBUTION WIDTH 17.9 % (11.6-14.6)
[2019-08-13 17:09] LABS: PROTHROMBIN TIME 11.2 sec (9.6-11.0)
[2019-08-13] MEDS ORDERED: LEVOFLOXACIN 750MG PREMIX 150 ML IV ONE (18:15)
[2019-08-13 21:10] VITALS: BP 177/77
[2019-08-13] MEDS ORDERED: CLONIDINE 0.1MG TABLET PO PRN (23:00)
[2019-08-13] MEDS: CLONIDINE 0.1MG TABLET PO PRN (23:15)
[2019-08-13] MEDS: ACETAMINOPHEN 325MG TABLET PO PRN (23:15)
[2019-08-14] VITALS (8 sets, daily range): BP systolic 161–215; BP diastolic 73–153
[2019-08-14] MEDS: ACETAMINOPHEN 325MG TABLET PO PRN ×2 (04:35→15:51)
[2019-08-14] MEDS ORDERED: LISINOPRIL 20MG TABLET PO SCH (09:00)
[2019-08-14] MEDS ORDERED: AZITHROMYCIN 500 MG TABLET PO NR (09:00)
[2019-08-14] MEDS: CLONIDINE 0.1MG TABLET PO PRN (09:19)
[2019-08-14] MEDS: ALLOPURINOL 100 MG TABLET PO SCH (09:19)
[2019-08-14] MEDS: ASPIRIN 81MG EC TABLET PO SCH (09:20)
[2019-08-14] MEDS: AMLODIPINE 10MG TABLET PO SCH (09:20)
[2019-08-14] MEDS: LISINOPRIL 20MG TABLET PO SCH (09:22)
[2019-08-14] MEDS ORDERED: PHENOL/SODIUM PHENOLATE 1.4% SRPAY 177ML MM PRN (09:45)
[2019-08-14] MEDS ORDERED: BENZONATATE 100MG CAPSULE PO PRN (09:45)
[2019-08-14] MEDS: CEFTRIAXONE 1 G PREMIX 50 ML IV SCH (10:50)
[2019-08-14] MEDS: GUAIFENESIN-DM 200MG-20MG/10ML UDC PO PRN ×2 (11:53→19:34)
[2019-08-14] MEDS ORDERED: LABETALOL 5MG/ML SYR 20 MG/4 ML SYRINGE IV NR (13:15)
[2019-08-14] MEDS: HYDRALAZINE HCL 100MG TABLET PO SCH ×2 (13:45→21:07)
[2019-08-14] MEDS: METOCLOPRAMIDE HCL 10MG/2ML VIAL IV PRN (13:57)
[2019-08-14] MEDS: ENOXAPARIN 30MG/0.3ML SYR SUBCUT SCH (13:58)
[2019-08-14] MEDS: BENZONATATE 100MG CAPSULE PO SCH ×2 (15:27→21:07)
[2019-08-14] MEDS: ZINC SULFATE 220 MG ( 50 ) CAPSULE PO SCH (15:51)
[2019-08-14] MEDS: ASCORBIC ACID 250 MG TABLET PO SCH (15:51)
[2019-08-14] MEDS: CARVEDILOL 6.25 MG TABLET PO SCH (19:34)
[2019-08-15] MEDS: CLONIDINE 0.1MG TABLET PO PRN ×3 (00:09→16:11)
[2019-08-15] MEDS: ACETAMINOPHEN 325MG TABLET PO PRN ×2 (02:26→09:55)
[2019-08-15 04:00] VITALS: BP_SYST 136; BP_SYST 163; BP_DIAS 70
[2019-08-15] MEDS: HYDRALAZINE HCL 100MG TABLET PO SCH ×3 (05:08→22:05)
[2019-08-15] MEDS: BENZONATATE 100MG CAPSULE PO SCH ×3 (05:19→22:06)
[2019-08-15] MEDS ORDERED: AZITHROMYCIN 250 MG TABLET PO SCH (09:00)
[2019-08-15] MEDS: CEFTRIAXONE 1 G PREMIX 50 ML IV SCH (09:33)
[2019-08-15] MEDS: ZINC SULFATE 220 MG ( 50 ) CAPSULE PO SCH (09:33)
[2019-08-15] MEDS: LISINOPRIL 20MG TABLET PO SCH (09:33)
[2019-08-15] MEDS: ASPIRIN 81MG EC TABLET PO SCH (09:33)
[2019-08-15] MEDS: CARVEDILOL 6.25 MG TABLET PO SCH (09:33)
[2019-08-15] MEDS: AMLODIPINE 10MG TABLET PO SCH (09:34)
[2019-08-15] MEDS: ALLOPURINOL 100 MG TABLET PO SCH (09:34)
[2019-08-15] MEDS: ASCORBIC ACID 250 MG TABLET PO SCH (09:39)
[2019-08-15] MEDS: METOCLOPRAMIDE HCL 10MG/2ML VIAL IV PRN (09:39)
[2019-08-15 12:00] VITALS: BP 183/80
[2019-08-15] MEDS: ENOXAPARIN 30MG/0.3ML SYR SUBCUT SCH (13:32)
[2019-08-15] MEDS: CLONIDINE 0.2MG TABLET PO SCH ×2 (13:32→22:05)
[2019-08-15] MEDS: HYDROXYCHLOROQUINE SULFATE 200MG TABLET PO SCH ×2 (15:29→22:06)
[2019-08-15] MEDS: THIAMINE HCL 100MG TABLET PO SCH ×2 (15:30→18:09)
[2019-08-15] MEDS: ASCORBIC ACID 500 MG TABLET PO SCH ×2 (15:30→18:09)
[2019-08-15 16:00] VITALS: BP 189/87
[2019-08-15] MEDS ORDERED: ALPRAZOLAM 0.5 MG TABLET PO PRN (16:45)
[2019-08-15 17:04] LABS: BASOPHILS % 0.6 % (0.0-2.0); EOSINOPHILS % 0.9 % (0.0-5.0); HEMATOCRIT. 39.6 % (42.0-52.0); HEMOGLOBIN. 13.4 g/dL (14.0-18.0); LYMPHOCYTES % 11.5 % (20.0-50.0); MEAN CORPUSCULAR VOLUME 88.3 fL (80.0-94.0); MEAN PLATELET VOLUME 8.5 fl (7.4-10.4); MONOCYTES % 6.8 % (2.0-8.0); NEUTROPHILS % 80.2 % (40.0-76.0); PLATELET 136 x1000/uL (130-400); RED BLOOD CELL COUNT 4.49 mill/uL (4.7-6.1); RED CELL DISTRIBUTION WIDTH 17.4 % (11.6-14.6)
[2019-08-15] MEDS: HYDROCODONE/ACETAMINOPHEN 5/325MG TABLET PO PRN (17:11)
[2019-08-15] MEDS: CARVEDILOL 12.5MG TABLET PO SCH (18:09)
[2019-08-15] MEDS: ALBUTEROL 6.7GM HFA INHALER ORI SCH (18:10)
[2019-08-15 20:00] VITALS: BP_SYST 151; BP_SYST 160; BP_DIAS 68; BP_DIAS 98
[2019-08-15] MEDS: GUAIFENESIN 600MG ER TABLET PO SCH (22:05)
[2019-08-16] VITALS: BP 195/81
[2019-08-16] MEDS: ALBUTEROL 6.7GM HFA INHALER ORI SCH ×5 (00:35→21:02)
[2019-08-16] MEDS: ASCORBIC ACID 500 MG TABLET PO SCH ×5 (00:35→21:42)
[2019-08-16] MEDS: ACETAMINOPHEN 325MG TABLET PO PRN ×3 (01:25→16:53)
[2019-08-16] MEDS: HYDROCODONE/ACETAMINOPHEN 5/325MG TABLET PO PRN ×4 (01:27→21:18)
[2019-08-16] MEDS: CLONIDINE 0.1MG TABLET PO PRN (01:28)
[2019-08-16 02:25] VITALS: BP 159/66
[2019-08-16 04:00] VITALS: BP 128/70
[2019-08-16] MEDS: BENZONATATE 100MG CAPSULE PO SCH ×3 (05:56→21:02)
[2019-08-16] MEDS: CLONIDINE 0.2MG TABLET PO SCH ×3 (05:57→21:02)
[2019-08-16] MEDS: HYDRALAZINE HCL 100MG TABLET PO SCH ×3 (05:57→21:02)
[2019-08-16] MEDS: HYDROXYCHLOROQUINE SULFATE 200MG TABLET PO SCH ×2 (09:02→16:52)
[2019-08-16] MEDS: LISINOPRIL 20MG TABLET PO SCH (09:03)
[2019-08-16] MEDS: GUAIFENESIN 600MG ER TABLET PO SCH ×2 (09:03→21:01)
[2019-08-16] MEDS: ALLOPURINOL 100 MG TABLET PO SCH (09:03)
[2019-08-16] MEDS: THIAMINE HCL 100MG TABLET PO SCH ×2 (09:03→18:59)
[2019-08-16] MEDS: AMLODIPINE 10MG TABLET PO SCH (09:03)
[2019-08-16] MEDS: ASPIRIN 81MG EC TABLET PO SCH (09:03)
[2019-08-16] MEDS: CARVEDILOL 12.5MG TABLET PO SCH ×2 (09:04→18:59)
[2019-08-16] MEDS: ZINC SULFATE 220 MG ( 50 ) CAPSULE PO SCH (09:04)
[2019-08-16] MEDS: CEFTRIAXONE 1 G PREMIX 50 ML IV SCH (10:42)
[2019-08-16] MEDS: ENOXAPARIN 30MG/0.3ML SYR SUBCUT SCH (15:00)
[2019-08-16] MEDS ORDERED: SODIUM POLYSTYRENE SULFONATE 15 G/60 ML BOT PO SCH (15:00)
[2019-08-16 16:00] VITALS: BP 199/76
[2019-08-16] MEDS: MORPHINE SULFATE 2 MG/ML CPJ (NOT FOR IM USE) IV PRN (16:54)
[2019-08-16 20:00] VITALS: BP 130/64
[2019-08-17] VITALS: BP 173/66
[2019-08-17 04:00] VITALS: BP 196/72
[2019-08-17] MEDS: HYDROCODONE/ACETAMINOPHEN 5/325MG TABLET PO PRN (04:39)
[2019-08-17 06:19] LABS: BASOPHILS % 0.8 % (0.0-2.0); HEMATOCRIT. 40.9 % (42.0-52.0); HEMOGLOBIN. 13.8 g/dL (14.0-18.0); MEAN CORPUSCULAR HEMOGLOBIN 29.8 pg (28.0-32.0); MEAN CORPUSCULAR VOLUME 88.2 fL (80.0-94.0); MEAN PLATELET VOLUME 8.3 fl (7.4-10.4); MONOCYTES % 8.2 % (2.0-8.0); PLATELET 157 x1000/uL (130-400); RED BLOOD CELL COUNT 4.64 mill/uL (4.7-6.1); RED CELL DISTRIBUTION WIDTH 17.7 % (11.6-14.6)
[2019-08-17] MEDS: HYDRALAZINE HCL 100MG TABLET PO SCH ×3 (06:23→21:56)
[2019-08-17] MEDS: CLONIDINE 0.2MG TABLET PO SCH ×3 (06:23→21:57)
[2019-08-17] MEDS: ASCORBIC ACID 500 MG TABLET PO SCH ×3 (06:23→18:18)
[2019-08-17] MEDS: BENZONATATE 100MG CAPSULE PO SCH ×3 (06:24→22:06)
[2019-08-17] MEDS: ALBUTEROL 6.7GM HFA INHALER ORI SCH ×3 (06:25→18:19)
[2019-08-17 08:00] VITALS: BP 164/74
[2019-08-17] MEDS: ZINC SULFATE 220 MG ( 50 ) CAPSULE PO SCH (09:32)
[2019-08-17] MEDS: HYDROXYCHLOROQUINE SULFATE 200MG TABLET PO SCH ×2 (09:32→18:18)
[2019-08-17] MEDS: AMLODIPINE 10MG TABLET PO SCH (09:33)
[2019-08-17] MEDS: ALLOPURINOL 100 MG TABLET PO SCH (09:33)
[2019-08-17] MEDS: GUAIFENESIN 600MG ER TABLET PO SCH ×2 (09:33→21:44)
[2019-08-17] MEDS: CARVEDILOL 12.5MG TABLET PO SCH ×2 (09:33→18:07)
[2019-08-17] MEDS: LISINOPRIL 20MG TABLET PO SCH (09:33)
[2019-08-17] MEDS: ASPIRIN 81MG EC TABLET PO SCH (09:33)
[2019-08-17] MEDS: THIAMINE HCL 100MG TABLET PO SCH ×2 (09:33→18:19)
[2019-08-17] MEDS: ACETAMINOPHEN 325MG TABLET PO PRN (09:34)
[2019-08-17] MEDS: CEFTRIAXONE 1,000 MG in DEXTROSE 5% WATER 50 ML IV SCH (11:27)
[2019-08-17 12:00] VITALS: BP 118/54
[2019-08-17] MEDS: METOCLOPRAMIDE HCL 10MG/2ML VIAL IV PRN (14:58)
[2019-08-17] MEDS: ENOXAPARIN 30MG/0.3ML SYR SUBCUT SCH (15:02)
[2019-08-17 16:00] VITALS: BP 118/58
[2019-08-17] MEDS ORDERED: SODIUM POLYSTYRENE SULFONATE 15 G/60 ML BOT PO NR (17:00)
[2019-08-17 20:00] VITALS: BP 147/65
[2019-08-17] MEDS: METOPROLOL TARTRATE 50MG TABLET PO SCH (21:00)
[2019-08-17] MEDS: MORPHINE SULFATE 2 MG/ML CPJ (NOT FOR IM USE) IV PRN (22:16)
[2019-08-18] VITALS (49 sets, daily range): BP systolic 78–210; BP diastolic 44–99
[2019-08-18] MEDS: ALBUTEROL 6.7GM HFA INHALER ORI SCH
[2019-08-18] MEDS: MORPHINE SULFATE 2 MG/ML CPJ (NOT FOR IM USE) IV PRN (03:31)
[2019-08-18] MEDS: CLONIDINE 0.2MG TABLET PO SCH (06:43)
[2019-08-18] MEDS: BENZONATATE 100MG CAPSULE PO SCH ×3 (06:43→20:30)
[2019-08-18] MEDS: HYDRALAZINE HCL 100MG TABLET PO SCH (06:43)
[2019-08-18] MEDS: ASCORBIC ACID 500 MG TABLET PO SCH ×4 (06:44→17:49)
[2019-08-18] MEDS: CARVEDILOL 12.5MG TABLET PO SCH (08:10)
[2019-08-18] MEDS: LISINOPRIL 20MG TABLET PO SCH (09:00)
[2019-08-18] MEDS: AMLODIPINE 10MG TABLET PO SCH (09:00)
[2019-08-18] MEDS: METOPROLOL TARTRATE 50MG TABLET PO SCH ×2 (09:00→20:39)
[2019-08-18] MEDS: GUAIFENESIN 600MG ER TABLET PO SCH ×2 (09:00→21:00)
[2019-08-18] MEDS: ALLOPURINOL 100 MG TABLET PO SCH (09:00)
[2019-08-18] MEDS: ASPIRIN 81MG EC TABLET PO SCH (09:00)
[2019-08-18] MEDS: HYDROXYCHLOROQUINE SULFATE 200MG TABLET PO SCH ×2 (09:00→17:48)
[2019-08-18] MEDS: THIAMINE HCL 100MG TABLET PO SCH ×2 (09:00→17:49)
[2019-08-18] MEDS: ZINC SULFATE 220 MG ( 50 ) CAPSULE PO SCH (09:00)
[2019-08-18] MEDS ORDERED: LABETALOL 5MG/ML SYR 20 MG/4 ML SYRINGE IV NR (09:14)
[2019-08-18] MEDS: CEFTRIAXONE 1,000 MG in DEXTROSE 5% WATER 50 ML IV SCH (09:41)
[2019-08-18] MEDS: PROPOFOL 10MG/ML 100ML 100 ML IV PRN ×3 (11:09→20:31)
[2019-08-18 11:12] LABS: BG BASE EXCESS -17.3 mmol/L (-2.0-2.0); BG CARBOXYHEMOGLOBIN 0.5 % (0.5-1.5); BG DEOXYHEMOGLOBIN 0.4 % (0.0-5.0); BG HCO3 ACT 12.4 mmol/L (22.0-26.0); BG METHEMOGLOBIN 0.3 % (0.0-1.5); BG OXYGEN SATURATION 99.6 % (92.0-98.5); BG OXYHEMOGLOBIN 98.8 % (94.0-97.0); BG PCO2 43.6 mmHg (35.0-45.0); BG PH 7.073 (7.350-7.450); BG PO2 325.1 mmHg (75.0-100.0); BG SAMPLE SITE RIGHT BRACHIAL; BG TIDAL VOLUME(mL) 450 mL; BG TOTAL HEMOGLOBIN 15.3 g/dL (12.0-18.0); BG VENT MODE VENT - A/C; BG VENT RATE 20 set
[2019-08-18] MEDS ORDERED: SODIUM BICARBONATE 8.4% 1 MEQ/ML 50ML SYR IV NR (11:30)
[2019-08-18] MEDS: ENOXAPARIN 30MG/0.3ML SYR SUBCUT SCH (14:00)
[2019-08-18] MEDS: FENTANYL CITRATE/PF 1,000 MCG in SODIUM CHLORIDE 0.9% 80 ML IV PRN (14:53)
[2019-08-18] MEDS: METHYLPREDNISOLONE SOD SUCC 40 MG/ML VIAL IV SCH ×2 (16:06→17:00)
[2019-08-18 16:56] LABS: BG BASE EXCESS -8.9 mmol/L (-2.0-2.0); BG CARBOXYHEMOGLOBIN 0.6 % (0.5-1.5); BG DEOXYHEMOGLOBIN 0.5 % (0.0-5.0); BG FRACTION INSPIRED OXYGEN 95; BG HCO3 ACT 16.3 mmol/L (22.0-26.0); BG METHEMOGLOBIN 0.3 % (0.0-1.5); BG OXYGEN SATURATION 99.5 % (92.0-98.5); BG OXYHEMOGLOBIN 98.6 % (94.0-97.0); BG PCO2 33.3 mmHg (35.0-45.0); BG PH 7.308 (7.350-7.450); BG PO2 279.1 mmHg (75.0-100.0); BG SAMPLE SITE RIGHT BRACHIAL; BG TIDAL VOLUME(mL) 450 mL; BG TOTAL HEMOGLOBIN 14.3 g/dL (12.0-18.0); BG VENT MODE VENT - A/C; BG VENT RATE 24 set
[2019-08-18 17:25] LABS: BASOPHILS % 0.5 % (0.0-2.0); HEMATOCRIT. 40.1 % (42.0-52.0); HEMOGLOBIN. 13.5 g/dL (14.0-18.0); LYMPHOCYTES % 12.8 % (20.0-50.0); MEAN CORPUSCULAR HEMOGLOBIN 29.6 pg (28.0-32.0); MEAN CORPUSCULAR VOLUME 87.9 fL (80.0-94.0); MEAN PLATELET VOLUME 8.3 fl (7.4-10.4); MONOCYTES % 5.4 % (2.0-8.0); NEUTROPHILS % 81.3 % (40.0-76.0); PLATELET 159 x1000/uL (130-400); RED BLOOD CELL COUNT 4.57 mill/uL (4.7-6.1); RED CELL DISTRIBUTION WIDTH 18.2 % (11.6-14.6)
[2019-08-18] MEDS: NOREPINEPHRINE 8 MG in DEXT 5% WATER 242 ML IV PRN (17:58)
[2019-08-19] VITALS (80 sets, daily range): BP systolic 88–211; BP diastolic 41–82
[2019-08-19] MEDS: ASCORBIC ACID 500 MG TABLET PO SCH ×3 (00:30→21:19)
[2019-08-19] MEDS: FENTANYL CITRATE/PF 1,000 MCG in SODIUM CHLORIDE 0.9% 80 ML IV PRN ×2 (00:56→12:59)
[2019-08-19] MEDS: PROPOFOL 10MG/ML 100ML 100 ML IV PRN ×2 (02:42→06:43)
[2019-08-19 05:39] LABS: BASOPHILS % 0.8 % (0.0-2.0); HEMATOCRIT. 39.1 % (42.0-52.0); HEMOGLOBIN. 13.1 g/dL (14.0-18.0); LYMPHOCYTES % 14.4 % (20.0-50.0); MEAN CORPUSCULAR HEMOGLOBIN 29.9 pg (28.0-32.0); MEAN CORPUSCULAR VOLUME 89.3 fL (80.0-94.0); MEAN PLATELET VOLUME 8.7 fl (7.4-10.4); MONOCYTES % 5.3 % (2.0-8.0); NEUTROPHILS % 79.5 % (40.0-76.0); PLATELET 148 x1000/uL (130-400); RED BLOOD CELL COUNT 4.38 mill/uL (4.7-6.1)
[2019-08-19] MEDS: BENZONATATE 100MG CAPSULE PO SCH ×3 (06:00→21:47)
[2019-08-19] MEDS ORDERED: LIDOCAINE HCL 1% 20ML VIAL (Pyxis) INJ ONE (08:14)
[2019-08-19] MEDS ORDERED: SODIUM POLYSTYRENE SULFONATE 15 G/60 ML BOT PO NR ×2 (08:30→20:00)
[2019-08-19] MEDS: GUAIFENESIN 600MG ER TABLET PO SCH ×2 (09:00→21:20)
[2019-08-19 09:56] LABS: BG BASE EXCESS -10.5 mmol/L (-2.0-2.0); BG CARBOXYHEMOGLOBIN 0.2 % (0.5-1.5); BG DEOXYHEMOGLOBIN 1.2 % (0.0-5.0); BG FRACTION INSPIRED OXYGEN 75; BG HCO3 ACT 16.4 mmol/L (22.0-26.0); BG METHEMOGLOBIN 0.3 % (0.0-1.5); BG OXYGEN SATURATION 98.8 % (92.0-98.5); BG OXYHEMOGLOBIN 98.3 % (94.0-97.0); BG PCO2 39.8 mmHg (35.0-45.0); BG PH 7.232 (7.350-7.450); BG PO2 166.7 mmHg (75.0-100.0); BG SAMPLE SITE RIGHT BRACHIAL; BG TIDAL VOLUME(mL) 450 mL; BG TOTAL HEMOGLOBIN 13.6 g/dL (12.0-18.0); BG VENT MODE VENT - A/C; BG VENT RATE 24 set
[2019-08-19] MEDS ORDERED: SODIUM BICARBONATE 8.4% 1 MEQ/ML 50ML SYR IV NR (10:00)
[2019-08-19] MEDS: ZINC SULFATE 220 MG ( 50 ) CAPSULE PO SCH (10:08)
[2019-08-19] MEDS: HYDROXYCHLOROQUINE SULFATE 200MG TABLET PO SCH ×2 (10:08→17:10)
[2019-08-19] MEDS: ASPIRIN 81MG TABLET GT SCH (10:08)
[2019-08-19] MEDS: METHYLPREDNISOLONE SOD SUCC 40 MG/ML VIAL IV SCH ×2 (10:08→17:10)
[2019-08-19] MEDS: ALLOPURINOL 100 MG TABLET PO SCH (10:09)
[2019-08-19] MEDS: METOPROLOL TARTRATE 50MG TABLET PO SCH ×2 (10:09→21:19)
[2019-08-19] MEDS: THIAMINE HCL 100MG TABLET PO SCH ×2 (10:15→17:10)
[2019-08-19] MEDS: HYDRALAZINE 20MG/ML VIAL IV PRN (12:52)
[2019-08-19] MEDS: PANTOPRAZOLE SODIUM 40 MG/VIAL IV SCH (12:52)
[2019-08-19] MEDS: MIDAZOLAM HCL 100 MG in DEXT 5% WATER 80 ML IV PRN (13:00)
[2019-08-19] MEDS: CEFTRIAXONE 1,000 MG in DEXTROSE 5% WATER 50 ML IV SCH (13:59)
[2019-08-19] MEDS: ENOXAPARIN 30MG/0.3ML SYR SUBCUT SCH (14:00)
[2019-08-19] MEDS: ACETAMINOPHEN 325MG TABLET NG PRN (14:35)
[2019-08-20] VITALS (85 sets, daily range): BP systolic 67–186; BP diastolic 29–109
[2019-08-20 04:56] LABS: BASOPHILS % 0.7 % (0.0-2.0); HEMATOCRIT. 45.9 % (42.0-52.0); HEMOGLOBIN. 15.4 g/dL (14.0-18.0); LYMPHOCYTES % 7.7 % (20.0-50.0); MEAN CORPUSCULAR HEMOGLOBIN 29.4 pg (28.0-32.0); MEAN CORPUSCULAR VOLUME 87.6 fL (80.0-94.0); MEAN PLATELET VOLUME 8.3 fl (7.4-10.4); NEUTROPHILS % 87.6 % (40.0-76.0); PLATELET 168 x1000/uL (130-400); RED BLOOD CELL COUNT 5.24 mill/uL (4.7-6.1); RED CELL DISTRIBUTION WIDTH 18.2 % (11.6-14.6)
[2019-08-20] MEDS: BENZONATATE 100MG CAPSULE PO SCH ×3 (06:00→21:31)
[2019-08-20] MEDS: MIDAZOLAM HCL 100 MG in DEXT 5% WATER 80 ML IV PRN (06:24)
[2019-08-20 08:07] LABS: BG BASE EXCESS -5.4 mmol/L (-2.0-2.0); BG CARBOXYHEMOGLOBIN 0.6 % (0.5-1.5); BG DEOXYHEMOGLOBIN 0.5 % (0.0-5.0); BG FRACTION INSPIRED OXYGEN 70; BG HCO3 ACT 19.4 mmol/L (22.0-26.0); BG METHEMOGLOBIN 0.3 % (0.0-1.5); BG OXYGEN SATURATION 99.5 % (92.0-98.5); BG OXYHEMOGLOBIN 98.6 % (94.0-97.0); BG PCO2 35.7 mmHg (35.0-45.0); BG PH 7.352 (7.350-7.450); BG PO2 264.4 mmHg (75.0-100.0); BG SAMPLE SITE RIGHT BRACHIAL; BG TIDAL VOLUME(mL) 400 mL; BG TOTAL HEMOGLOBIN 14.9 g/dL (12.0-18.0); BG VENT MODE VENT - A/C; BG VENT RATE 28 set
[2019-08-20] MEDS: ASCORBIC ACID 500 MG TABLET PO SCH ×2 (09:12→21:31)
[2019-08-20] MEDS: ZINC SULFATE 220 MG ( 50 ) CAPSULE PO SCH (09:12)
[2019-08-20] MEDS: METHYLPREDNISOLONE SOD SUCC 40 MG/ML VIAL IV SCH ×2 (09:12→16:12)
[2019-08-20] MEDS: PANTOPRAZOLE SODIUM 40 MG/VIAL IV SCH (09:12)
[2019-08-20] MEDS: THIAMINE HCL 100MG TABLET PO SCH ×2 (09:12→16:12)
[2019-08-20] MEDS: GUAIFENESIN 600MG ER TABLET PO SCH (09:12)
[2019-08-20] MEDS: METOPROLOL TARTRATE 50MG TABLET PO SCH ×2 (09:12→21:00)
[2019-08-20] MEDS: ALLOPURINOL 100 MG TABLET PO SCH (09:13)
[2019-08-20] MEDS: DOXAZOSIN MESYLATE 4MG TABLET PO SCH (09:13)
[2019-08-20] MEDS: ASPIRIN 81MG TABLET GT SCH (09:13)
[2019-08-20] MEDS: FENTANYL CITRATE/PF 1,000 MCG in SODIUM CHLORIDE 0.9% 80 ML IV PRN (10:58)
[2019-08-20] MEDS: ENOXAPARIN 30MG/0.3ML SYR SUBCUT SCH (13:20)
[2019-08-20] MEDS: NOREPINEPHRINE 8 MG in DEXT 5% WATER 242 ML IV PRN (14:34)
[2019-08-20] MEDS: ACETAMINOPHEN 325MG TABLET NG PRN (21:31)
[2019-08-21] VITALS (83 sets, daily range): BP systolic 79–142; BP diastolic 48–75
[2019-08-21 05:25] LABS: BASOPHILS % 0.5 % (0.0-2.0); HEMATOCRIT. 37.1 % (42.0-52.0); HEMOGLOBIN. 12.3 g/dL (14.0-18.0); LYMPHOCYTES % 10.8 % (20.0-50.0); MEAN CORPUSCULAR HEMOGLOBIN 29.1 pg (28.0-32.0); MEAN CORPUSCULAR VOLUME 87.8 fL (80.0-94.0); MEAN PLATELET VOLUME 8.2 fl (7.4-10.4); MONOCYTES % 4.9 % (2.0-8.0); NEUTROPHILS % 83.8 % (40.0-76.0); PLATELET 141 x1000/uL (130-400); RED BLOOD CELL COUNT 4.23 mill/uL (4.7-6.1); RED CELL DISTRIBUTION WIDTH 18.6 % (11.6-14.6)
[2019-08-21] MEDS: BENZONATATE 100MG CAPSULE PO SCH ×3 (05:28→21:35)
[2019-08-21] MEDS: MIDAZOLAM HCL 100 MG in DEXT 5% WATER 80 ML IV PRN ×2 (05:29→21:35)
[2019-08-21] MEDS: ZINC SULFATE 220 MG ( 50 ) CAPSULE PO SCH (08:26)
[2019-08-21] MEDS: METHYLPREDNISOLONE SOD SUCC 40 MG/ML VIAL IV SCH (08:26)
[2019-08-21] MEDS: ASCORBIC ACID 500 MG TABLET PO SCH ×2 (08:26→21:36)
[2019-08-21] MEDS: PANTOPRAZOLE SODIUM 40 MG/VIAL IV SCH (08:26)
[2019-08-21] MEDS: METOPROLOL TARTRATE 50MG TABLET PO SCH ×2 (08:27→21:00)
[2019-08-21] MEDS: ASPIRIN 81MG TABLET GT SCH (08:27)
[2019-08-21] MEDS: DOXAZOSIN MESYLATE 4MG TABLET PO SCH (08:27)
[2019-08-21] MEDS: ALLOPURINOL 100 MG TABLET PO SCH (08:27)
[2019-08-21] MEDS: THIAMINE HCL 100MG TABLET PO SCH (08:27)
[2019-08-21 08:30] LABS: BG CARBOXYHEMOGLOBIN 0.6 % (0.5-1.5); BG DEOXYHEMOGLOBIN 4.9 % (0.0-5.0); BG FRACTION INSPIRED OXYGEN 40; BG HCO3 ACT 20.5 mmol/L (22.0-26.0); BG METHEMOGLOBIN 0.2 % (0.0-1.5); BG OXYGEN SATURATION 95.1 % (92.0-98.5); BG OXYHEMOGLOBIN 94.3 % (94.0-97.0); BG PCO2 39.5 mmHg (35.0-45.0); BG PH 7.332 (7.350-7.450); BG PO2 87.7 mmHg (75.0-100.0); BG SAMPLE SITE RIGHT BRACHIAL; BG TIDAL VOLUME(mL) 400 mL; BG TOTAL HEMOGLOBIN 13.6 g/dL (12.0-18.0); BG VENT MODE VENT - A/C; BG VENT RATE 28 set
[2019-08-21] MEDS: FENTANYL CITRATE/PF 1,000 MCG in SODIUM CHLORIDE 0.9% 80 ML IV PRN ×2 (09:37→21:06)
[2019-08-21] MEDS ORDERED: DEXTROSE 50% WATER 50ML SYRINGE IV PRN (12:15)
[2019-08-21] MEDS: ENOXAPARIN 30MG/0.3ML SYR SUBCUT SCH (14:15)
[2019-08-21] MEDS: BLOOD SUGAR DIAGNOSTIC STRIP TEST SCH ×2 (16:15→21:44)
[2019-08-21] MEDS: PIPERACILLIN/TAZOBACTAM 3.375 G in DEXT 5% WATER 100 ML IV SCH (17:07)
[2019-08-21] MEDS: INSULIN LISPRO 100 UNITS/ML SUBCUT SCH ×2 (17:07→21:53)
[2019-08-21] MEDS: LANTHANUM CARBONATE 500MG CHEW TABLET PO SCH (17:07)
[2019-08-21] MEDS ORDERED: PIPERACILLIN/TAZOBACTAM 2.25 G in DEXTROSE 5% WATER 50 ML IV SCH (22:00)
[2019-08-22] VITALS (81 sets, daily range): BP systolic 96–164; BP diastolic 50–114
[2019-08-22 05:52] LABS: BASOPHILS % 0.6 % (0.0-2.0); EOSINOPHILS % 0.2 % (0.0-5.0); HEMATOCRIT. 38.6 % (42.0-52.0); HEMOGLOBIN. 12.8 g/dL (14.0-18.0); LYMPHOCYTES % 7.8 % (20.0-50.0); MEAN CORPUSCULAR HEMOGLOBIN 29.2 pg (28.0-32.0); MEAN CORPUSCULAR VOLUME 88.1 fL (80.0-94.0); MEAN PLATELET VOLUME 8.8 fl (7.4-10.4); MONOCYTES % 3.7 % (2.0-8.0); NEUTROPHILS % 87.7 % (40.0-76.0); PLATELET 156 x1000/uL (130-400); RED BLOOD CELL COUNT 4.38 mill/uL (4.7-6.1); RED CELL DISTRIBUTION WIDTH 17.9 % (11.6-14.6)
[2019-08-22] MEDS: INSULIN LISPRO 100 UNITS/ML SUBCUT SCH ×4 (06:14→22:00)
[2019-08-22] MEDS: LANTHANUM CARBONATE 500MG CHEW TABLET PO SCH ×3 (06:15→16:59)
[2019-08-22] MEDS: BENZONATATE 100MG CAPSULE PO SCH ×3 (06:15→22:00)
[2019-08-22] MEDS: PIPERACILLIN/TAZOBACTAM 3.375 G in DEXT 5% WATER 100 ML IV SCH ×2 (06:15→16:59)
[2019-08-22] MEDS: BLOOD SUGAR DIAGNOSTIC STRIP TEST SCH ×4 (06:15→21:55)
[2019-08-22 08:19] LABS: BG BASE EXCESS -5.5 mmol/L (-2.0-2.0); BG CARBOXYHEMOGLOBIN 0.5 % (0.5-1.5); BG DEOXYHEMOGLOBIN 4.8 % (0.0-5.0); BG HCO3 ACT 19.4 mmol/L (22.0-26.0); BG METHEMOGLOBIN 0.2 % (0.0-1.5); BG OXYGEN SATURATION 95.2 % (92.0-98.5); BG OXYHEMOGLOBIN 94.5 % (94.0-97.0); BG PCO2 35.7 mmHg (35.0-45.0); BG PH 7.352 (7.350-7.450); BG SAMPLE SITE RIGHT BRACHIAL; BG TIDAL VOLUME(mL) 400 mL; BG TOTAL HEMOGLOBIN 13.1 g/dL (12.0-18.0); BG VENT MODE VENT - A/C; BG VENT RATE 28 set
[2019-08-22] MEDS: PYRAZINAMIDE 500MG TABLET PO SCH (09:00)
[2019-08-22] MEDS: DOXAZOSIN MESYLATE 4MG TABLET PO SCH (09:00)
[2019-08-22] MEDS: PANTOPRAZOLE SODIUM 40 MG/VIAL IV SCH (09:30)
[2019-08-22] MEDS: METOPROLOL TARTRATE 50MG TABLET PO SCH ×2 (09:31→21:00)
[2019-08-22] MEDS: RIFAMPIN 300MG CAPSULE PO SCH (09:31)
[2019-08-22] MEDS: ASPIRIN 81MG TABLET GT SCH (09:31)
[2019-08-22] MEDS: PYRIDOXINE HCL 50MG TABLET PO SCH (09:31)
[2019-08-22] MEDS: ASCORBIC ACID 500 MG TABLET PO SCH ×2 (09:32→21:00)
[2019-08-22] MEDS: ISONIAZID 300MG TABLET PO SCH (09:32)
[2019-08-22] MEDS: ZINC SULFATE 220 MG ( 50 ) CAPSULE PO SCH (09:32)
[2019-08-22] MEDS: ALLOPURINOL 100 MG TABLET PO SCH (09:32)
[2019-08-22] MEDS: ENOXAPARIN 30MG/0.3ML SYR SUBCUT SCH (13:50)
[2019-08-22] MEDS: NOREPINEPHRINE 8 MG in DEXT 5% WATER 242 ML IV PRN (13:52)
[2019-08-22] MEDS: ETHAMBUTOL HCL 400MG TABLET PO SCH (17:00)
[2019-08-22 19:17] LABS: HEMOGLOBIN. 11.9 g/dL (14.0-18.0); MEAN CORPUSCULAR HEMOGLOBIN 29.1 pg (28.0-32.0); MEAN CORPUSCULAR VOLUME 87.8 fL (80.0-94.0); PLATELET 170 x1000/uL (130-400); RED CELL DISTRIBUTION WIDTH 18.1 % (11.6-14.6)
[2019-08-22 22:25] LABS: PLATELET ESTIMATE NORMAL
[2019-08-23] VITALS (105 sets, daily range): BP systolic 88–223; BP diastolic 49–105
[2019-08-23] MEDS: INSULIN GLARGINE UD 100 UNITS/ML SYR SUBCUT SCH ×3 (00:56→21:48)
[2019-08-23] MEDS: PIPERACILLIN/TAZOBACTAM 3.375 G in DEXT 5% WATER 100 ML IV SCH ×2 (05:20→17:46)
[2019-08-23] MEDS: BENZONATATE 100MG CAPSULE PO SCH ×3 (05:20→21:42)
[2019-08-23 06:05] LABS: HEMATOCRIT. 34.3 % (42.0-52.0); HEMOGLOBIN. 11.3 g/dL (14.0-18.0); MEAN CORPUSCULAR HEMOGLOBIN 28.9 pg (28.0-32.0); MEAN CORPUSCULAR VOLUME 88.1 fL (80.0-94.0); MEAN PLATELET VOLUME 9.5 fl (7.4-10.4); PLATELET 168 x1000/uL (130-400); RED BLOOD CELL COUNT 3.89 mill/uL (4.7-6.1)
[2019-08-23] MEDS: INSULIN LISPRO 100 UNITS/ML SUBCUT SCH ×4 (06:49→21:48)
[2019-08-23] MEDS: BLOOD SUGAR DIAGNOSTIC STRIP TEST SCH ×4 (06:49→21:00)
[2019-08-23] MEDS: LANTHANUM CARBONATE 500MG CHEW TABLET PO SCH ×3 (06:58→17:44)
[2019-08-23] MEDS: DOXAZOSIN MESYLATE 4MG TABLET PO SCH ×2 (09:00→10:00)
[2019-08-23] MEDS: METOPROLOL TARTRATE 50MG TABLET PO SCH ×2 (09:00→21:00)
[2019-08-23 09:34] LABS: BG BASE EXCESS -7.1 mmol/L (-2.0-2.0); BG CARBOXYHEMOGLOBIN 0.3 % (0.5-1.5); BG FRACTION INSPIRED OXYGEN 40; BG HCO3 ACT 17.8 mmol/L (22.0-26.0); BG METHEMOGLOBIN 0.3 % (0.0-1.5); BG OXYHEMOGLOBIN 97.4 % (94.0-97.0); BG PH 7.338 (7.350-7.450); BG PO2 136.4 mmHg (75.0-100.0); BG SAMPLE SITE RIGHT RADIAL; BG TIDAL VOLUME(mL) 400 mL; BG TOTAL HEMOGLOBIN 11.7 g/dL (12.0-18.0); BG VENT MODE VENT - A/C; BG VENT RATE 28 set
[2019-08-23] MEDS ORDERED: LIDOCAINE HCL 1% 20ML VIAL (Pyxis) INJ ONE (09:48)
[2019-08-23] MEDS: PANTOPRAZOLE SODIUM 40 MG/VIAL IV SCH (10:00)
[2019-08-23] MEDS: ASPIRIN 81MG TABLET GT SCH (10:00)
[2019-08-23 10:06] LABS: INR 1.1; PARTIAL THROMBOPLASTIN TIME 37.3 sec (23.4-31.0); PROTHROMBIN TIME 11.4 sec (9.6-11.0)
[2019-08-23] MEDS: ASCORBIC ACID 500 MG TABLET PO SCH ×2 (10:32→21:47)
[2019-08-23] MEDS: ISONIAZID 300MG TABLET PO SCH (10:33)
[2019-08-23] MEDS: RIFAMPIN 300MG CAPSULE PO SCH (10:34)
[2019-08-23] MEDS: PYRAZINAMIDE 500MG TABLET PO SCH ×2 (10:34→15:57)
[2019-08-23] MEDS: ALLOPURINOL 100 MG TABLET PO SCH (10:35)
[2019-08-23] MEDS: ZINC SULFATE 220 MG ( 50 ) CAPSULE PO SCH (10:35)
[2019-08-23] MEDS: PYRIDOXINE HCL 50MG TABLET PO SCH (10:35)
[2019-08-23 11:47] LABS: PLATELET ESTIMATE NORMAL
[2019-08-23] MEDS: NOREPINEPHRINE 8 MG in DEXT 5% WATER 242 ML IV PRN (13:33)
[2019-08-23] MEDS: ENOXAPARIN 30MG/0.3ML SYR SUBCUT SCH (15:00)
[2019-08-23] MEDS: PHENYLEPHRINE 40 MG in DEXT 5% WATER 246 ML IV PRN ×2 (15:07→21:39)
[2019-08-24] VITALS (95 sets, daily range): BP systolic 101–174; BP diastolic 55–80
[2019-08-24] MEDS: FENTANYL CITRATE/PF 1,000 MCG in SODIUM CHLORIDE 0.9% 80 ML IV PRN (01:07)
[2019-08-24] MEDS: PHENYLEPHRINE 40 MG in DEXT 5% WATER 246 ML IV PRN (04:26)
[2019-08-24 05:58] LABS: HEMOGLOBIN. 10.6 g/dL (14.0-18.0); MEAN CORPUSCULAR HEMOGLOBIN 28.9 pg (28.0-32.0); MEAN CORPUSCULAR VOLUME 87.5 fL (80.0-94.0); MEAN PLATELET VOLUME 8.8 fl (7.4-10.4); PLATELET 164 x1000/uL (130-400); RED BLOOD CELL COUNT 3.66 mill/uL (4.7-6.1)
[2019-08-24] MEDS: BENZONATATE 100MG CAPSULE PO SCH ×3 (06:07→21:52)
[2019-08-24] MEDS: BLOOD SUGAR DIAGNOSTIC STRIP TEST SCH ×4 (06:08→21:51)
[2019-08-24] MEDS: PIPERACILLIN/TAZOBACTAM 3.375 G in DEXT 5% WATER 100 ML IV SCH ×2 (06:11→18:06)
[2019-08-24] MEDS: LANTHANUM CARBONATE 500MG CHEW TABLET PO SCH ×3 (06:11→17:50)
[2019-08-24] MEDS: INSULIN LISPRO 100 UNITS/ML SUBCUT SCH ×4 (06:11→21:00)
[2019-08-24] MEDS: DOXAZOSIN MESYLATE 4MG TABLET PO SCH (09:00)
[2019-08-24] MEDS: METOPROLOL TARTRATE 50MG TABLET PO SCH ×2 (09:00→21:52)
[2019-08-24] MEDS: PANTOPRAZOLE SODIUM 40 MG/VIAL IV SCH (09:08)
[2019-08-24] MEDS: ASCORBIC ACID 500 MG TABLET PO SCH ×2 (09:09→21:52)
[2019-08-24] MEDS: RIFAMPIN 300MG CAPSULE PO SCH (09:09)
[2019-08-24] MEDS: PYRIDOXINE HCL 50MG TABLET PO SCH (09:09)
[2019-08-24] MEDS: ISONIAZID 300MG TABLET PO SCH (09:09)
[2019-08-24] MEDS: ASPIRIN 81MG TABLET GT SCH (09:10)
[2019-08-24] MEDS: ALLOPURINOL 100 MG TABLET PO SCH (09:10)
[2019-08-24] MEDS: ZINC SULFATE 220 MG ( 50 ) CAPSULE PO SCH (09:10)
[2019-08-24 10:07] LABS: BG BASE EXCESS -3.5 mmol/L (-2.0-2.0); BG CARBOXYHEMOGLOBIN 0.3 % (0.5-1.5); BG FRACTION INSPIRED OXYGEN 40; BG HCO3 ACT 19.3 mmol/L (22.0-26.0); BG METHEMOGLOBIN 0.3 % (0.0-1.5); BG OXYHEMOGLOBIN 98.4 % (94.0-97.0); BG PCO2 27.6 mmHg (35.0-45.0); BG PH 7.462 (7.350-7.450); BG SAMPLE SITE RIGHT RADIAL; BG TIDAL VOLUME(mL) 400 mL; BG TOTAL HEMOGLOBIN 10.6 g/dL (12.0-18.0); BG VENT MODE VENT - A/C; BG VENT RATE 24 set
[2019-08-24] MEDS: INSULIN GLARGINE UD 100 UNITS/ML SYR SUBCUT SCH ×2 (10:19→21:56)
[2019-08-24 10:27] LABS: PLATELET ESTIMATE NORMAL
[2019-08-24] MEDS: ENOXAPARIN 30MG/0.3ML SYR SUBCUT SCH (14:51)
[2019-08-24] MEDS: ACETAMINOPHEN 325MG TABLET NG PRN (16:08)
[2019-08-24] MEDS: METRONIDAZOLE 500 MG PREMIX 100 ML IV SCH (17:51)
[2019-08-25] VITALS (99 sets, daily range): BP systolic 80–195; BP diastolic 30–80
[2019-08-25] MEDS: FENTANYL CITRATE/PF 1,000 MCG in SODIUM CHLORIDE 0.9% 80 ML IV PRN ×3 (00:10→21:23)
[2019-08-25] MEDS: HYDRALAZINE 20MG/ML VIAL IV PRN (01:26)
[2019-08-25] MEDS: METRONIDAZOLE 500 MG PREMIX 100 ML IV SCH ×3 (02:00→17:41)
[2019-08-25] MEDS: BLOOD SUGAR DIAGNOSTIC STRIP TEST SCH ×4 (05:49→21:23)
[2019-08-25] MEDS: METOPROLOL TARTRATE 50MG TABLET PO SCH ×2 (06:10→20:54)
[2019-08-25] MEDS: PIPERACILLIN/TAZOBACTAM 3.375 G in DEXT 5% WATER 100 ML IV SCH ×2 (06:16→17:18)
[2019-08-25] MEDS: BENZONATATE 100MG CAPSULE PO SCH ×3 (06:17→21:24)
[2019-08-25] MEDS: LANTHANUM CARBONATE 500MG CHEW TABLET PO SCH ×3 (06:17→17:40)
[2019-08-25] MEDS: INSULIN LISPRO 100 UNITS/ML SUBCUT SCH ×4 (06:18→21:00)
[2019-08-25 06:25] LABS: HEMATOCRIT. 28.4 % (42.0-52.0); HEMOGLOBIN. 9.4 g/dL (14.0-18.0); MEAN CORPUSCULAR HEMOGLOBIN 28.8 pg (28.0-32.0); MEAN CORPUSCULAR VOLUME 87.2 fL (80.0-94.0); MEAN PLATELET VOLUME 9.2 fl (7.4-10.4); PLATELET 179 x1000/uL (130-400); RED BLOOD CELL COUNT 3.25 mill/uL (4.7-6.1); RED CELL DISTRIBUTION WIDTH 18.4 % (11.6-14.6)
[2019-08-25] MEDS: ACETAMINOPHEN 325MG TABLET NG PRN (06:49)
[2019-08-25 06:57] LABS: BG BASE EXCESS -4.3 mmol/L (-2.0-2.0); BG CARBOXYHEMOGLOBIN 0.3 % (0.5-1.5); BG DEOXYHEMOGLOBIN 3.7 % (0.0-5.0); BG FRACTION INSPIRED OXYGEN 40; BG HCO3 ACT 19.7 mmol/L (22.0-26.0); BG METHEMOGLOBIN 0.2 % (0.0-1.5); BG OXYGEN SATURATION 96.3 % (92.0-98.5); BG OXYHEMOGLOBIN 95.8 % (94.0-97.0); BG PCO2 32.1 mmHg (35.0-45.0); BG PH 7.405 (7.350-7.450); BG SAMPLE SITE RIGHT RADIAL; BG TIDAL VOLUME(mL) 400 mL; BG VENT MODE VENT - A/C; BG VENT RATE 18 set
[2019-08-25] MEDS: RIFAMPIN 300MG CAPSULE PO SCH (09:05)
[2019-08-25] MEDS: PANTOPRAZOLE SODIUM 40 MG/VIAL IV SCH (09:05)
[2019-08-25] MEDS: ASCORBIC ACID 500 MG TABLET PO SCH ×2 (09:06→20:53)
[2019-08-25] MEDS: PYRIDOXINE HCL 50MG TABLET PO SCH (09:06)
[2019-08-25] MEDS: ALLOPURINOL 100 MG TABLET PO SCH (09:06)
[2019-08-25] MEDS: ZINC SULFATE 220 MG ( 50 ) CAPSULE PO SCH (09:06)
[2019-08-25] MEDS: PYRAZINAMIDE 500MG TABLET PO SCH (09:06)
[2019-08-25] MEDS: ASPIRIN 81MG TABLET GT SCH (09:06)
[2019-08-25] MEDS: ISONIAZID 300MG TABLET PO SCH (09:06)
[2019-08-25] MEDS: DOXAZOSIN MESYLATE 4MG TABLET PO SCH (09:07)
[2019-08-25 09:26] LABS: PLATELET ESTIMATE NORMAL
[2019-08-25] MEDS: INSULIN GLARGINE UD 100 UNITS/ML SYR SUBCUT SCH ×2 (09:42→21:42)
[2019-08-25] MEDS: ENOXAPARIN 30MG/0.3ML SYR SUBCUT SCH (13:52)
[2019-08-25] MEDS: PHENYLEPHRINE 40 MG in DEXT 5% WATER 246 ML IV PRN (15:39)
[2019-08-25] MEDS: ETHAMBUTOL HCL 400MG TABLET PO SCH (17:44)
[2019-08-26] VITALS (102 sets, daily range): BP systolic 104–213; BP diastolic 51–140
[2019-08-26] MEDS: ACETAMINOPHEN 325MG TABLET NG PRN (00:17)
[2019-08-26] MEDS: METRONIDAZOLE 500 MG PREMIX 100 ML IV SCH ×3 (01:24→18:00)
[2019-08-26] MEDS: MICAFUNGIN 100 MG in SODIUM CHLORIDE 0.9% 100 ML IV SCH (02:13)
[2019-08-26] MEDS: FENTANYL CITRATE/PF 1,000 MCG in SODIUM CHLORIDE 0.9% 80 ML IV PRN ×2 (05:48→20:08)
[2019-08-26] MEDS: BENZONATATE 100MG CAPSULE PO SCH ×3 (06:03→21:38)
[2019-08-26] MEDS: LANTHANUM CARBONATE 500MG CHEW TABLET PO SCH ×3 (06:03→17:00)
[2019-08-26] MEDS: PIPERACILLIN/TAZOBACTAM 3.375 G in DEXT 5% WATER 100 ML IV SCH ×2 (06:03→17:00)
[2019-08-26 06:23] LABS: HEMATOCRIT. 30.9 % (42.0-52.0); HEMOGLOBIN. 10.1 g/dL (14.0-18.0); MEAN CORPUSCULAR HEMOGLOBIN 28.8 pg (28.0-32.0); MEAN CORPUSCULAR VOLUME 87.6 fL (80.0-94.0); MEAN PLATELET VOLUME 9.2 fl (7.4-10.4); PLATELET 210 x1000/uL (130-400); RED BLOOD CELL COUNT 3.53 mill/uL (4.7-6.1); RED CELL DISTRIBUTION WIDTH 18.5 % (11.6-14.6)
[2019-08-26] MEDS: BLOOD SUGAR DIAGNOSTIC STRIP TEST SCH ×4 (06:43→21:39)
[2019-08-26] MEDS: INSULIN LISPRO 100 UNITS/ML SUBCUT SCH ×4 (07:00→21:00)
[2019-08-26 08:09] LABS: PLATELET ESTIMATE NORMAL
[2019-08-26 08:48] LABS: BG BASE EXCESS -3.6 mmol/L (-2.0-2.0); BG DEOXYHEMOGLOBIN 2.6 % (0.0-5.0); BG FRACTION INSPIRED OXYGEN 40; BG HCO3 ACT 20.9 mmol/L (22.0-26.0); BG METHEMOGLOBIN 0.2 % (0.0-1.5); BG OXYGEN SATURATION 97.4 % (92.0-98.5); BG OXYHEMOGLOBIN 97.2 % (94.0-97.0); BG PCO2 35.7 mmHg (35.0-45.0); BG PH 7.386 (7.350-7.450); BG PO2 109.5 mmHg (75.0-100.0); BG SAMPLE SITE RIGHT RADIAL; BG TIDAL VOLUME(mL) 400 mL; BG TOTAL HEMOGLOBIN 9.6 g/dL (12.0-18.0); BG VENT MODE VENT - A/C; BG VENT RATE 16 set
[2019-08-26] MEDS: DOXAZOSIN MESYLATE 4MG TABLET PO SCH (09:00)
[2019-08-26] MEDS: METOPROLOL TARTRATE 50MG TABLET PO SCH ×2 (09:00→12:08)
[2019-08-26] MEDS: ISONIAZID 300MG TABLET PO SCH (10:24)
[2019-08-26] MEDS: ASPIRIN 81MG TABLET GT SCH (10:24)
[2019-08-26] MEDS: ZINC SULFATE 220 MG ( 50 ) CAPSULE PO SCH (10:24)
[2019-08-26] MEDS: RIFAMPIN 300MG CAPSULE PO SCH (10:24)
[2019-08-26] MEDS: PANTOPRAZOLE SODIUM 40 MG/VIAL IV SCH (10:24)
[2019-08-26] MEDS: ASCORBIC ACID 500 MG TABLET PO SCH ×2 (10:24→21:38)
[2019-08-26] MEDS: ALLOPURINOL 100 MG TABLET PO SCH (10:25)
[2019-08-26] MEDS: LACTOBACILLUS GG CAPSULE PO SCH (10:25)
[2019-08-26] MEDS: PYRIDOXINE HCL 50MG TABLET PO SCH (10:25)
[2019-08-26] MEDS: ENOXAPARIN 30MG/0.3ML SYR SUBCUT SCH (15:00)
[2019-08-26] MEDS ORDERED: INSULIN GLARGINE UD 100 UNITS/ML SYR SUBCUT SCH (22:00)
[2019-08-27] VITALS (95 sets, daily range): BP systolic 92–189; BP diastolic 46–93
[2019-08-27] MEDS: MIDAZOLAM HCL 100 MG in DEXT 5% WATER 80 ML IV PRN ×3 (01:00→21:59)
[2019-08-27] MEDS: METRONIDAZOLE 500 MG PREMIX 100 ML IV SCH ×3 (02:21→18:00)
[2019-08-27] MEDS: MICAFUNGIN 100 MG in SODIUM CHLORIDE 0.9% 100 ML IV SCH (03:43)
[2019-08-27] MEDS: FENTANYL CITRATE/PF 1,000 MCG in SODIUM CHLORIDE 0.9% 80 ML IV PRN ×2 (05:57→18:00)
[2019-08-27 06:13] LABS: HEMATOCRIT. 28.5 % (42.0-52.0); HEMOGLOBIN. 9.4 g/dL (14.0-18.0); MEAN CORPUSCULAR HEMOGLOBIN 28.9 pg (28.0-32.0); MEAN CORPUSCULAR VOLUME 87.7 fL (80.0-94.0); MEAN PLATELET VOLUME 8.9 fl (7.4-10.4); PLATELET 220 x1000/uL (130-400); RED BLOOD CELL COUNT 3.25 mill/uL (4.7-6.1); RED CELL DISTRIBUTION WIDTH 18.5 % (11.6-14.6)
[2019-08-27] MEDS: LANTHANUM CARBONATE 500MG CHEW TABLET PO SCH ×3 (06:24→17:00)
[2019-08-27] MEDS: BENZONATATE 100MG CAPSULE PO SCH ×3 (06:25→21:46)
[2019-08-27] MEDS: INSULIN LISPRO 100 UNITS/ML SUBCUT SCH ×4 (07:00→21:00)
[2019-08-27] MEDS: BLOOD SUGAR DIAGNOSTIC STRIP TEST SCH ×4 (07:25→21:00)
[2019-08-27 07:46] LABS: PLATELET ESTIMATE NORMAL
[2019-08-27 08:38] LABS: BG BASE EXCESS -5.5 mmol/L (-2.0-2.0); BG CARBOXYHEMOGLOBIN 0.3 % (0.5-1.5); BG DEOXYHEMOGLOBIN 3.6 % (0.0-5.0); BG FRACTION INSPIRED OXYGEN 40; BG HCO3 ACT 19.1 mmol/L (22.0-26.0); BG METHEMOGLOBIN 0.2 % (0.0-1.5); BG OXYGEN SATURATION 96.4 % (92.0-98.5); BG OXYHEMOGLOBIN 95.9 % (94.0-97.0); BG PCO2 33.7 mmHg (35.0-45.0); BG PH 7.371 (7.350-7.450); BG PO2 99.6 mmHg (75.0-100.0); BG SAMPLE SITE RIGHT RADIAL; BG TIDAL VOLUME(mL) 400 mL; BG TOTAL HEMOGLOBIN 9.5 g/dL (12.0-18.0); BG VENT MODE VENT - A/C; BG VENT RATE 16 set
[2019-08-27] MEDS: DOXAZOSIN MESYLATE 4MG TABLET PO SCH (09:00)
[2019-08-27] MEDS: METOPROLOL TARTRATE 50MG TABLET PO SCH ×2 (09:00→21:46)
[2019-08-27] MEDS: ALLOPURINOL 100 MG TABLET PO SCH (09:00)
[2019-08-27] MEDS: PANTOPRAZOLE SODIUM 40 MG/VIAL IV SCH (09:00)
[2019-08-27] MEDS: ZINC SULFATE 220 MG ( 50 ) CAPSULE PO SCH (09:00)
[2019-08-27] MEDS: RIFAMPIN 300MG CAPSULE PO SCH (09:00)
[2019-08-27] MEDS: ASPIRIN 81MG TABLET GT SCH (09:00)
[2019-08-27] MEDS: PYRIDOXINE HCL 50MG TABLET PO SCH (09:00)
[2019-08-27] MEDS: LACTOBACILLUS GG CAPSULE PO SCH (09:00)
[2019-08-27] MEDS: ASCORBIC ACID 500 MG TABLET PO SCH ×2 (09:00→21:45)
[2019-08-27] MEDS: ISONIAZID 300MG TABLET PO SCH (09:00)
[2019-08-27] MEDS: ENOXAPARIN 80MG/0.8ML SYR SUBCUT SCH (13:00)
[2019-08-28] VITALS (96 sets, daily range): BP systolic 61–183; BP diastolic 36–92
[2019-08-28] MEDS: CLONIDINE 0.1MG TABLET PO PRN (01:27)
[2019-08-28] MEDS: METRONIDAZOLE 500 MG PREMIX 100 ML IV SCH ×3 (01:35→17:23)
[2019-08-28] MEDS: MICAFUNGIN 100 MG in SODIUM CHLORIDE 0.9% 100 ML IV SCH (02:45)
[2019-08-28] MEDS: FENTANYL CITRATE/PF 1,000 MCG in SODIUM CHLORIDE 0.9% 80 ML IV PRN ×3 (03:54→23:08)
[2019-08-28 05:51] LABS: BASOPHILS % 0.7 % (0.0-2.0); EOSINOPHILS % 3.6 % (0.0-5.0); HEMATOCRIT. 24.3 % (42.0-52.0); HEMOGLOBIN. 7.9 g/dL (14.0-18.0); LYMPHOCYTES % 7.1 % (20.0-50.0); MEAN CORPUSCULAR HEMOGLOBIN 28.9 pg (28.0-32.0); MEAN CORPUSCULAR VOLUME 88.8 fL (80.0-94.0); MEAN PLATELET VOLUME 8.7 fl (7.4-10.4); MONOCYTES % 3.9 % (2.0-8.0); NEUTROPHILS % 84.7 % (40.0-76.0); PLATELET 244 x1000/uL (130-400); RED BLOOD CELL COUNT 2.74 mill/uL (4.7-6.1); RED CELL DISTRIBUTION WIDTH 18.1 % (11.6-14.6)
[2019-08-28] MEDS: BLOOD SUGAR DIAGNOSTIC STRIP TEST SCH ×4 (06:30→21:52)
[2019-08-28] MEDS: INSULIN LISPRO 100 UNITS/ML SUBCUT SCH ×4 (07:00→21:58)
[2019-08-28] MEDS: LANTHANUM CARBONATE 500MG CHEW TABLET PO SCH ×3 (07:43→17:22)
[2019-08-28] MEDS: BENZONATATE 100MG CAPSULE PO SCH ×3 (07:43→21:09)
[2019-08-28 07:45] LABS: BG CARBOXYHEMOGLOBIN 0.3 % (0.5-1.5); BG DEOXYHEMOGLOBIN 6.6 % (0.0-5.0); BG HCO3 ACT 16.5 mmol/L (22.0-26.0); BG METHEMOGLOBIN 0.2 % (0.0-1.5); BG OXYGEN SATURATION 93.4 % (92.0-98.5); BG OXYHEMOGLOBIN 92.9 % (94.0-97.0); BG PCO2 34.3 mmHg (35.0-45.0); BG PO2 84.1 mmHg (75.0-100.0); BG SAMPLE SITE RIGHT BRACHIAL; BG TIDAL VOLUME(mL) 400 mL; BG TOTAL HEMOGLOBIN 9.4 g/dL (12.0-18.0); BG VENT MODE VENT - A/C; BG VENT RATE 16 set
[2019-08-28] MEDS: LACTOBACILLUS GG CAPSULE PO SCH (08:16)
[2019-08-28] MEDS: RIFAMPIN 300MG CAPSULE PO SCH (08:16)
[2019-08-28] MEDS: ZINC SULFATE 220 MG ( 50 ) CAPSULE PO SCH (08:16)
[2019-08-28] MEDS: PANTOPRAZOLE SODIUM 40 MG/VIAL IV SCH (08:16)
[2019-08-28] MEDS: ENOXAPARIN 80MG/0.8ML SYR SUBCUT SCH (08:16)
[2019-08-28] MEDS: ASPIRIN 81MG TABLET GT SCH (08:17)
[2019-08-28] MEDS: DOXAZOSIN MESYLATE 4MG TABLET PO SCH (08:17)
[2019-08-28] MEDS: PYRIDOXINE HCL 50MG TABLET PO SCH (08:17)
[2019-08-28] MEDS: ASCORBIC ACID 500 MG TABLET PO SCH ×2 (08:17→21:09)
[2019-08-28] MEDS: ALLOPURINOL 100 MG TABLET PO SCH (08:17)
[2019-08-28] MEDS: ISONIAZID 300MG TABLET PO SCH (08:17)
[2019-08-28] MEDS: METOPROLOL TARTRATE 50MG TABLET PO SCH ×2 (08:18→21:09)
[2019-08-28] MEDS: MIDAZOLAM HCL 100 MG in DEXT 5% WATER 80 ML IV PRN ×2 (08:52→20:06)
[2019-08-28] MEDS: QUETIAPINE FUMARATE 25MG TABLET PO SCH (21:09)
[2019-08-29] VITALS (80 sets, daily range): BP systolic 98–173; BP diastolic 39–82
[2019-08-29] MEDS: METRONIDAZOLE 500 MG PREMIX 100 ML IV SCH ×3 (01:51→18:27)
[2019-08-29] MEDS: MICAFUNGIN 100 MG in SODIUM CHLORIDE 0.9% 100 ML IV SCH (03:02)
[2019-08-29 04:55] LABS: HEMATOCRIT. 25.3 % (42.0-52.0); HEMOGLOBIN. 8.1 g/dL (14.0-18.0); MEAN CORPUSCULAR HEMOGLOBIN 28.6 pg (28.0-32.0); MEAN CORPUSCULAR VOLUME 89.2 fL (80.0-94.0); PLATELET 205 x1000/uL (130-400); RED BLOOD CELL COUNT 2.83 mill/uL (4.7-6.1)
[2019-08-29] MEDS: LANTHANUM CARBONATE 500MG CHEW TABLET PO SCH ×3 (06:11→17:50)
[2019-08-29] MEDS: BENZONATATE 100MG CAPSULE PO SCH ×3 (06:11→21:26)
[2019-08-29] MEDS: BLOOD SUGAR DIAGNOSTIC STRIP TEST SCH ×4 (06:30→21:00)
[2019-08-29] MEDS: MIDAZOLAM HCL 100 MG in DEXT 5% WATER 80 ML IV PRN ×2 (06:36→18:25)
[2019-08-29] MEDS: INSULIN LISPRO 100 UNITS/ML SUBCUT SCH ×4 (07:00→21:00)
[2019-08-29] MEDS: METOPROLOL TARTRATE 50MG TABLET PO SCH ×2 (09:00→21:25)
[2019-08-29] MEDS: DOXAZOSIN MESYLATE 4MG TABLET PO SCH (09:00)
[2019-08-29 09:31] LABS: BG BASE EXCESS -10.8 mmol/L (-2.0-2.0); BG CARBOXYHEMOGLOBIN 0.1 % (0.5-1.5); BG DEOXYHEMOGLOBIN 1.5 % (0.0-5.0); BG FRACTION INSPIRED OXYGEN 40; BG HCO3 ACT 15.3 mmol/L (22.0-26.0); BG METHEMOGLOBIN 0.3 % (0.0-1.5); BG OXYGEN SATURATION 98.5 % (92.0-98.5); BG OXYHEMOGLOBIN 98.1 % (94.0-97.0); BG PCO2 34.7 mmHg (35.0-45.0); BG PH 7.262 (7.350-7.450); BG PO2 153.9 mmHg (75.0-100.0); BG SAMPLE SITE RIGHT RADIAL; BG TIDAL VOLUME(mL) 400 mL; BG TOTAL HEMOGLOBIN 8.6 g/dL (12.0-18.0); BG VENT MODE VENT - A/C; BG VENT RATE 16 set
[2019-08-29] MEDS: ALLOPURINOL 100 MG TABLET PO SCH (10:06)
[2019-08-29] MEDS: ASCORBIC ACID 500 MG TABLET PO SCH ×2 (10:06→21:25)
[2019-08-29] MEDS: RIFAMPIN 300MG CAPSULE PO SCH (10:06)
[2019-08-29] MEDS: QUETIAPINE FUMARATE 25MG TABLET PO SCH ×2 (10:06→21:26)
[2019-08-29] MEDS: ISONIAZID 300MG TABLET PO SCH (10:06)
[2019-08-29] MEDS: PANTOPRAZOLE SODIUM 40 MG/VIAL IV SCH (10:06)
[2019-08-29] MEDS: PYRIDOXINE HCL 50MG TABLET PO SCH (10:07)
[2019-08-29] MEDS: LACTOBACILLUS GG CAPSULE PO SCH (10:07)
[2019-08-29] MEDS: ZINC SULFATE 220 MG ( 50 ) CAPSULE PO SCH (10:08)
[2019-08-29] MEDS ORDERED: SODIUM BICARBONATE 8.4% 1 MEQ/ML 50ML SYR IV NR (10:30)
[2019-08-29 10:44] LABS: PLATELET ESTIMATE NORMAL
[2019-08-29] MEDS: FENTANYL CITRATE/PF 1,000 MCG in SODIUM CHLORIDE 0.9% 80 ML IV PRN (20:34)
[2019-08-30] VITALS (28 sets, daily range): BP systolic 114–161; BP diastolic 55–72
[2019-08-30] MEDS: MICAFUNGIN 100 MG in SODIUM CHLORIDE 0.9% 100 ML IV SCH (02:53)
[2019-08-30] MEDS: MIDAZOLAM HCL 100 MG in DEXT 5% WATER 80 ML IV PRN (03:39)
[2019-08-30] MEDS: FENTANYL CITRATE/PF 1,000 MCG in SODIUM CHLORIDE 0.9% 80 ML IV PRN (05:08)
[2019-08-30 05:33] LABS: HEMATOCRIT. 23.7 % (42.0-52.0); HEMOGLOBIN. 7.7 g/dL (14.0-18.0); MEAN CORPUSCULAR HEMOGLOBIN 28.7 pg (28.0-32.0); MEAN PLATELET VOLUME 8.7 fl (7.4-10.4); PLATELET 196 x1000/uL (130-400); RED CELL DISTRIBUTION WIDTH 18.3 % (11.6-14.6)
[2019-08-30] MEDS: LANTHANUM CARBONATE 500MG CHEW TABLET PO SCH (07:03)
[2019-08-30] MEDS: BENZONATATE 100MG CAPSULE PO SCH (07:03)
[2019-08-30] MEDS: BLOOD SUGAR DIAGNOSTIC STRIP TEST SCH (07:17)
[2019-08-30] MEDS: INSULIN LISPRO 100 UNITS/ML SUBCUT SCH (07:28)
[2019-08-30 08:46] LABS: PLATELET ESTIMATE NORMAL
[2019-08-30 09:25] LABS: BG BASE EXCESS -2.9 mmol/L (-2.0-2.0); BG CARBOXYHEMOGLOBIN 0.2 % (0.5-1.5); BG DEOXYHEMOGLOBIN 1.5 % (0.0-5.0); BG FRACTION INSPIRED OXYGEN 40; BG HCO3 ACT 22.7 mmol/L (22.0-26.0); BG METHEMOGLOBIN 0.3 % (0.0-1.5); BG OXYGEN SATURATION 98.5 % (92.0-98.5); BG PCO2 43.4 mmHg (35.0-45.0); BG PH 7.337 (7.350-7.450); BG PO2 151.2 mmHg (75.0-100.0); BG SAMPLE SITE RIGHT RADIAL; BG TIDAL VOLUME(mL) 400 mL; BG TOTAL HEMOGLOBIN 7.3 g/dL (12.0-18.0); BG VENT MODE VENT - A/C; BG VENT RATE 20 set
== END 2019-08-30 09:00 | disposition short-term general hospital (02) | DRG 720 ==
LOC: ER 14:39 → 7WST 17:15 → EEVIPCON 17:15 → ENRESERV 20:11 → 7WST 08-16 19:02 → MICUNO 08-18 10:09
PROVIDERS: ADMIT Internal Medicine; ATTEND Internal Medicine
PROC: 5A1D70Z Performance of Urinary Filtration, Intermittent, Less than 6 Hours Per Day (ICD-10-PCS; 2019-08-15)
PROC: 5A1D70Z Performance of Urinary Filtration, Intermittent, Less than 6 Hours Per Day (ICD-10-PCS; 2019-08-17)
PROC: 5A1955Z Respiratory Ventilation, Greater than 96 Consecutive Hours (ICD-10-PCS; principal; 2019-08-18)
PROC: 0BH17EZ Insertion of Endotracheal Airway into Trachea, Via Natural or Artificial Opening (ICD-10-PCS; 2019-08-18)
PROC: 5A1D70Z Performance of Urinary Filtration, Intermittent, Less than 6 Hours Per Day (ICD-10-PCS; 2019-08-18)
PROC: 5A1D70Z Performance of Urinary Filtration, Intermittent, Less than 6 Hours Per Day (ICD-10-PCS; 2019-08-19)
PROC: 05HY33Z Insertion of Infusion Device into Upper Vein, Percutaneous Approach (ICD-10-PCS; 2019-08-19)
PROC: 5A1D70Z Performance of Urinary Filtration, Intermittent, Less than 6 Hours Per Day (ICD-10-PCS; 2019-08-22)
PROC: 5A1D70Z Performance of Urinary Filtration, Intermittent, Less than 6 Hours Per Day (ICD-10-PCS; 2019-08-23)
PROC: 02HV33Z Insertion of Infusion Device into Superior Vena Cava, Percutaneous Approach (ICD-10-PCS; 2019-08-23)
PROC: B548ZZA Ultrasonography of Superior Vena Cava, Guidance (ICD-10-PCS; 2019-08-23)
PROC: 5A1D70Z Performance of Urinary Filtration, Intermittent, Less than 6 Hours Per Day (ICD-10-PCS; 2019-08-27)
DX: A41.89 Other specified sepsis (principal); U07.1 COVID-19; J96.01 Acute respiratory failure with hypoxia; J12.89 Other viral pneumonia; R65.21 Severe sepsis with septic shock; G93.41 Metabolic encephalopathy; I13.2 Hypertensive heart and chronic kidney disease with heart failure and with stage 5 chronic kidney disease, or end stage renal disease; N18.6 End stage renal disease; E11.22 Type 2 diabetes mellitus with diabetic chronic kidney disease; E87.1 Hypo-osmolality and hyponatremia; I16.0 Hypertensive urgency; D64.9 Anemia, unspecified; F41.9 Anxiety disorder, unspecified; F17.210 Nicotine dependence, cigarettes, uncomplicated; M10.9 Gout, unspecified; E78.1 Pure hyperglyceridemia; D72.810 Lymphocytopenia; I50.41 Acute combined systolic (congestive) and diastolic (congestive) heart failure; E87.5 Hyperkalemia; Z99.2 Dependence on renal dialysis; Z78.9 Other specified health status; Z86.15 Personal history of latent tuberculosis infection; Z79.82 Long term (current) use of aspirin; Z79.899 Other long term (current) drug therapy
CPT/HCPCS: 31500; 36415; 36600; 71045; 76937; 80048; 80053; 80076; 82270; 82375; 82728; 82805; 82962; 83605; 83615; 83735; 83880; 84100; 84132; 84145; 84478; 84484; 85025; 85379; 86140; 87070; 87077; 87420; 87635; 87804; 93005; 94002; 94003; 99285; C1725; C1752; C9113; J0360; J0696; J1650; J1815; J1956; J2248; J2250; J2270; J2370; J2543; J2704; J2765; J2920; J3010; J3490; J7050; J7060